=== PATIENT | female | born 1960 | race Caucasian/White ===

== ENCOUNTER 2024-11-27 20:56 | Inpatient (IN) | payer OTHER, MEDICAID, MEDICARE, SELFPAY ==
[2024-11-27 20:57] VITALS: BMI 48.6
[2024-11-27 21:15] VITALS: BP 148/78; PULSE 85; RESP 21; TEMP 37.1; O2SAT 96
--- NOTE | 2024-11-27 22:02 | XR_ITS ---
Examination: Ultrasound soft tissue subacute area pelvis Exam date and time: 2024 1010 hrs. Indications: Suprapubic redness swelling and pain beginning 2 weeks ago Findings: Soft tissue hernia of edema and low echogenicity 9.8 x 1.7 x 7.4 cm with vascularity consistent with abscess Impression: Findings most consistent with soft tissue abscess at the area concern, 9.8 x 1.7 x 1.4 cm
--- NOTE | 2024-11-27 22:05 | PD.EDRME ---
Rapid Medical Screening Exam RME Arrival date/time: 11/27/24 20:56 64-year-old female past medical history of ESRD presents emergency department complaining of abscess to vaginal area for 1 week. Patient reports was sent by Dr. Jurado for evaluation. Chief Complaint: Skin/Abscess/Foreign Body Time Seen by Provider: 11/27/24 20:57 Vital signs: Vital Signs Temperature 98.8 F 11/27/24 21:15 Pulse Rate 85 11/27/24 21:15 Respiratory Rate 21 H 11/27/24 21:15 Blood Pressure 148/78 H 11/27/24 21:15 Pulse Oximetry (%) 96 11/27/24 21:15 Oxygen Delivery Method Room Air 11/27/24 21:15 Vital signs reviewed by provider: Yes
[2024-11-27] MEDS: HYDROcodone/APAP 5/325 TABLET 1 TAB PO (22:44)
[2024-11-27 22:59] LABS: Basophils % (Auto) 0 % (0-2.5); Eosinophils # (Auto) 0.2 Thou/mm3 (0.0-0.5); Eosinophils % (Auto) 2 % (0-10); Hematocrit 36.6 % (36.0-46.0); Hemoglobin 11.4 g/dL (12.0-16.0); Immature Granulocytes % (Auto) 0 % (0-0); Immature Granulocytes Auto 0.04 Thou/mm3 (0.00-0.00); Lymphocytes # (Auto) 1.6 Thou/mm3 (1.0-4.8); Lymphocytes % (Auto) 18 % (10-50); Mean Corpuscular HGB Conc 31.1 g/dl (31.0-37.0); Mean Corpuscular Hemoglobin 30.6 pg (25.0-35.0); Mean Corpuscular Volume 98 fL (80-100); Monocytes # (Auto) 0.7 Thou/mm3 (0.0-0.8); Monocytes % (Auto) 7 % (0-12); Neutrophils # (Auto) 6.4 Thou/mm3 (1.8-7.7); Neutrophils % (Auto) 72 % (37-80); Nucleated Red Blood Cell % 0 /100 WBC (0); Platelet Count 235 Thou/mm3 (140-440); RDW Standard Deviation 50.8 fL (36.4-46.3); Red Blood Count 3.73 Miln/mm3 (4.00-5.20); White Blood Count 8.9 Thou/mm3 (3.6-11.0)
[2024-11-27 23:21] LABS: INR 1.1 (0.9-1.3); Partial Thromboplastin Time 26.5 Seconds (22.0-36.0); Prothrombin Time 11.7 Seconds (9.0-12.2)
[2024-11-27 23:28] LABS: Alanine Aminotransferase 19 U/L (10-49); Albumin, Serum 3.9 gm/dL (3.4-4.8); Albumin/Globulin Ratio 1.4 (1.2-2.2); Alkaline Phosphatase 133 U/L (46-116); Anion Gap 8 (7-16); Aspartate Amino Transferase 16 U/L (0-34); BUN/Creatinine Ratio 9 Ratio (12-20); Bilirubin,Total < 0.2 mg/dL (0.3-1.2); Blood Urea Nitrogen 48 mg/dL (9-23); Calcium 8.8 mg/dL (8.3-10.6); Calcium (Corrected) 8.9 mg/dL (8.5-10.1); Carbon Dioxide 25.6 mMol/L (20.0-31.0); Chloride 103 mMol/L (98-107); Creatinine (Component) 5.4 mg/dL (0.6-1.3); Estimated Creatinine Clearance 13.7 mL/min (>60); Globulin 2.8 gm/dL (2.3-3.5); Glucose 133 mg/dL (74-106); Osmolality,Calculated 288 (275-295); Potassium 5.7 mMol/L (3.4-5.1); Procalcitonin 0.38 ng/ml (0.0-0.49); Sodium 137 mMol/L (136-145); Total Protein 6.7 gm/dL (5.7-8.2); Troponin I < 0.020 ng/mL (0.0-0.045); eGFR 8 See Note
[2024-11-27 23:30] LABS: B-Type Natriuretic Peptide 182 pg/mL (0-100)
[2024-11-28] VITALS (11 sets, daily range): BP systolic 118–150; BP diastolic 56–106; PULSE 72–92; RESP 16–19; TEMP 36.2–36.8; O2SAT 93–100; BMI 48.6
--- NOTE | 2024-11-28 02:43 | PD.EDSKIN ---
ED Skin Abcess FB-RME/HPI General Chief complaint: Skin/Abscess/Foreign Body Stated complaint: POSS ABSCESS ON VAGINAL AREA Time Seen by Provider: 11/27/24 20:57 Arrival date/time: 11/27/24 20:56 RME / HPI RME / HPI narrative: 11/27/24 20:56 64-year-old female past medical history of ESRD presents emergency department complaining of abscess to vaginal area for 1 week. Patient reports was sent by Dr. Jurado for evaluation. Dr. Caruso?s Main ED Evaluation: 64yo female presents to the ED for a wound to her vaginal area x 1 week. Patient states she initially thought she had an ingrown hair to her vaginal area 1 week ago, reporting she started developing redness, pain, and swelling to the area over the last week. She states she started having bloody drainage 2 days ago. She was seen by her PCP, Dr. Jurado, today and was sent over for evaluation. Patient denies any fever, chills, cough, runny nose or any other associated symptoms. 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%), rheumatoid arthritis on methotrexate and Raynaud's Related Data Home Medications ?Medication ?Instructions ?Recorded ?Confirmed aspirin 81 mg tablet,delayed 81 mg PO QDAY ##0 10/22/14 07/25/24 release albuterol sulfate 90 mcg/actuation 2 inh inhalation TID PRN Shortness 09/02/22 07/25/24 aerosol inhaler Of Breath Or Wheezing atorvastatin 20 mg tablet 20 mg PO QDAY 09/02/22 07/25/24 carvedilol 12.5 mg tablet 12.5 mg PO BID 09/02/22 07/25/24 clopidogrel 75 mg tablet (Plavix) 75 mg PO QDAY 09/02/22 07/25/24 hydrocodone 5 mg-acetaminophen 325 1 tab PO DAILY 09/02/22 07/25/24 mg tablet insulin aspart U-100 100 unit/mL 5 unit subcut TIDWM 09/02/22 07/25/24 (3 mL) subcutaneous pen (Novolog FlexPen U-100 Insulin aspart) loratadine 10 mg tablet 10 mg PO QDAY 09/02/22 07/25/24 midodrine 5 mg tablet 5 mg PO BID 09/02/22 07/25/24 pregabalin 100 mg capsule 100 mg PO BID 09/02/22 07/25/24 sacubitril 97 mg-valsartan 103 mg 1 tab PO BID 09/02/22 07/25/24 tablet (Entresto) blood sugar diagnostic (Accu-Chek 03/30/23 07/28/24 Guide test strips) duloxetine 20 mg capsule,delayed 20 mg PO QDAY 03/30/23 07/25/24 release pen needle, diabetic 32 gauge x 03/30/23 07/28/2409/30 (BD Ultra-Fine Micro Pen Needle) sevelamer carbonate 800 mg tablet 2,400 mg PO TID 03/30/23 07/25/24 tirzepatide 5 mg/0.5 mL 5 mg subcut QWEEK 03/30/23 07/25/24 subcutaneous pen injector (Nicki) vitamin B complex-vitamin C-folic 1 tab PO QDAY 03/30/23 07/25/24 acid 0.8 mg tablet (Lori-Stephanie) Previous Rx's ?Medication ?Instructions ?Recorded nitroglycerin 0.4 mg sublingual 0.4 mg buccal PRN PRN Chest Pain 03/10/22 tablet (Nitrostat) #60 tabs cephalexin 500 mg capsule 500 mg PO BID #10 caps 08/01/24 lidocaine HCl 2 % mucosal solution 15 ml PO Q6H PRN Local Anesthesia 08/01/24 #150 mL Allergies Allergy/AdvReac Type Severity Reaction Status Date / Time clarithromycin Allergy Severe RASH Verified 07/25/24 13:19 Review of Systems Review of Systems Systems Reviewed: All systems reviewed, normal except as documented Past Medical History Past Medical History NEUROLOGIC: Positive Neurological Disorders, Perez's Palsy and Head Trauma; Negative Seizures CARDIAC: Positive Cardiac Disorders, Myocardial Infarction, Coronary Artery Disease, Hypercholesterolemia, Congestive Heart Failure and Hypertension; Negative Edema or Cellulitis RESPIRATORY: Positive Chronic Obstructive Pulmonary Disease (COPD), Asthma and Pneumonia; Negative Tuberculosis, Pulmonary Embolism or Sleep Apnea GASTROINTESTINAL: Positive Gastrointestinal Disorders, Gall Bladder Disease, Hiatal Hernia, Gastroesophageal Reflux Disease and Obesity; Negative Hepatitis or Ulcer GENITOURINARY: Positive Genitourinary Disorders, Renal Disease and Dialysis REPRODUCTIVE: Positive Previous Pregnancies MUSCULOSKELETAL: Positive Musculoskeletal Disorders, Rheumatoid Arthritis, Degenerative Disk Disease, Carpal Tunnel Syndrome, Fibromyalgia and Fractures ENT: Positive Cataracts and Head Trauma ENDOCRINE: Positive Endocrine Disorders and Diabetes Mellitus Type 2; Negative Diabetes Mellitus Type 1 HEMATOLOGIC: Positive Anemia; Negative Blood Disorders or Sickle Cell Disease PSYCHO/SOCIAL: Positive Anxiety; Negative Depression OTHER HISTORY: Positive Hospitalization, Shingles, Falls, MRSA, Chicken Pox and Measles; Negative Autoimmune Disease, Blood Transfusions, Blood Transfusion Reaction, Anesthesia Reactions, Chemotherapy, Radiation Therapy, Mumps or Cancer Family History FAMILY HISTORY: Positive Family Psychiatric Problems, Family Respiratory Disorders, Family Cardiac Disorders and Family Surgery; Negative Family Gastrointestinal Problems, Family Cancer or Family Anesthesia Reaction Surgical History SURGICAL: Positive Coronary Stent, Cardiac Catheterization, Angiogram, Eye Surgery, Nose Surgery, Tonsillectomy, Abdominal Surgery, Joint Replacement, Arthroscopy, Tubal Ligation and Section; Negative Pacemaker Social History SMOKING STATUS: Former smoker SECOND HAND EXPOSURE: Yes SUBSTANCE USE: does not use ED Exam Narrative Physical exam: GENERAL APPEARANCE: alert and oriented x 4, well-developed, well-nourished, morbidly obese, no acute distress VITALS: All vitals were reviewed and the pulse ox is 97% on room air, which is normal according to my interpretation. 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 There's extensive swelling and erythema with tenderness to palpation over the entire mons venous. There is an anterior 6 cm open wound with perulent and bloody drainage with some erythema to the left inguinal crease, but not the right. There's no obvious perineal involvement or discharge, nor is there any vaginal discharge. NEUROLOGIC: awake; alert and oriented x4; cranial nerves II-XII grossly intact; no focal sensory or motor deficits PSYCHIATRIC: appropriate mood and affect SKIN: warm, dry; no rashes Course Quality Measures none Orders Category Date Time Status CT Screening NOW Care 11/28/24 03:04 Active Executive Administrative Asst STAT Care 11/28/24 02:59 Active Continuous Pulse Oximetry STAT Care 11/28/24 02:59 Completed EKG (ED ONLY) *Do not use* NOW Care 11/28/24 02:59 Completed In and Out Catheter X1PRN Care 11/28/24 02:59 Active Insert IV NOW Care 11/28/24 02:59 Active NPO STAT Care 11/28/24 02:59 Active Strict Intake and Output Routine Care 11/28/24 02:[address] pelvis w con Stat Exams 11/28/24 03:04 Taken EKG (ED Only) Stat Exams 11/28/24 02:59 Draft US extremity nonvascular LMTD Stat Exams 11/27/24 22:02 Completed BNP [B-Type Natriuretic Peptide] Stat Lab 11/27/24 22:46 Completed Blood Culture (Lab) Stat Lab 11/27/24 22:46 Received CBC Stat Lab 11/27/24 22:46 Completed CMP [Comprehensive Metabolic Panel] Stat Lab 11/27/24 22:46 Completed LDH (Lactate Dehydrogenase) Stat Lab 11/28/24 03:36 Completed Lactic Acid [Lactate (Lactic Acid)] Stat Lab 11/27/24 22:46 Completed Lipase Stat Lab 11/28/24 03:36 Completed Magnesium Stat Lab 11/28/24 03:36 Completed PT [Prothrombin Time with INR] Stat Lab 11/27/24 22:46 Completed PTT [Partial Thromboplastin Time] Stat Lab 11/27/24 22:46 Completed Phosphorous Stat Lab 11/28/24 03:36 Completed Procalcitonin Stat Lab 11/27/24 22:46 Completed Troponin I Stat Lab 11/27/24 22:46 Completed Urinalysis Stat Lab 11/28/24 02:59 Ordered Urine Culture Stat Lab 11/28/24 02:59 Ordered Wound Culture and Gram Stain Stat Lab 11/28/24 03:08 Received Acetaminophen Ivpb [Ofirmev Inj] Med 11/28/24 03:07 Discontinued 1,000 mg in 100 ml IV X1 Doxycycline Inj [Vibramycin Inj] 100 mg Med 11/28/24 03:04 Discontinued Sodium Chloride 0.9% (Pop) [NS 0.9% mini bag] 100 ml IV X1 Doxycycline Inj [Vibramycin Inj] 100 mg Med 11/28/24 03:40 Discontinued Sodium Chloride 0.9% (Pop) [NS 0.9% mini bag] 100 ml IV X1 HYDROcodone*/APAP 5/325 [Epps 5/325] Med 11/27/24 22:06 Discontinued 1 tab PO X1 ONE Morphine Inj Med 11/28/24 03:10 Discontinued 2 mg IVP X1 ONE Ondansetron Inj [Zofran Inj] Med 11/28/24 03:10 Discontinued 4 mg IV X1 ONE Piper/Tazo Inj [Zosyn Inj] 4.5 gm Med 11/28/24 03:05 Discontinued Sodium Chloride 0.9% (Pop) [NS 0.9% mini bag] 100 ml IV X1 Piper/Tazo Inj [Zosyn Inj] 4.5 gm Med 11/28/24 03:39 Discontinued Sodium Chloride 0.9% (Pop) [NS 0.9% mini bag] 100 ml IV X1 Vital Signs Vital signs: Vital Signs Temperature 98.8 F 11/27/24 21:15 Pulse Rate 85 11/27/24 21:15 Respiratory Rate 21 H 11/27/24 21:15 Blood Pressure 148/78 H 11/27/24 21:15 Pulse Oximetry (%) 96 11/27/24 21:15 Oxygen Delivery Method Room Air 11/27/24 21:15 Skin / Abscess / Foreign Body MDM Narrative MDM Narrative:: Scribe Attestation: 11/28/24 Heydi Collado am scribing for and in the presence of Dr. Caruso. Patient data External records reviewed:: [facility] previous records (Per chart review, patient was admitted here on 07/25/24 for anemia.) Clinical information provided by:: patient Social determinants that could affect healthcare access:: none Patient has the following chronic illnesses:: ESRD on HD (MWF), T2DM, COPD, CAD s/p PCI, HFmrEF (last EF March 2023 45-50%), rheumatoid arthritis on methotrexate and Raynaud's How is presenting disease/condition affected by chronic disease/condition?: exacerbated by Evaluation data The following diagnostics were reviewed and interpreted by me:: lab results, radiology exam(s) and EKG tracing(s) Lab and/or radiology exams considered but not ordered:: none Interpretation Summary: CBC is normal, Potassium is elevated at 5.7, Creatinine is elevated at 5.4, BUN is 48, Glucose is 133, Lactic Acid is normal, BNP is 182, Procalcitonin is normal, according to my interpretation. EKG done at 0436, NSR, rate of 84, left axis deviation, left ventricular hypertrophy, Q waves in V1-V3, no acute ischemia, according to my interpretation. -------- [facility] Report Signed Patient: ALICIA DE GUZMAN. Record#: [id number] Birthdate: 1960 Age/Sex: 64 / F Location: [facility] Attending Dr: Ordering Physician: Neeta Kelsey ([facility]),Richard MEDLEY Date of Service: 11/27/24 Procedure(s): US extremity nonvascular LMTD Accession Number(s): [id number] cc: Gilbert Falcon MD; NO PRIMARY/FAMILY,PHYSICIAN; Neeta Kelsey ([employer]),Richard MEDLEY~ Examination: Ultrasound soft tissue subacute area pelvis Exam date and time: 2024 1010 hrs. Indications: Suprapubic redness swelling and pain beginning 2 weeks ago Findings: Soft tissue hernia of edema and low echogenicity 9.8 x 1.7 x 7.4 cm with vascularity consistent with abscess Impression: Findings most consistent with soft tissue abscess at the area concern, 9.8 x 1.7 x 1.4 cm Dictated By: Gilbert Falcon MD Signed By: <Electronically signed by Gilbert Falcon MD in OV> 11/27/24 1571 Medications / Prescriptions Medications or Prescriptions considered but not ordered:: none Medication administrations:: Medication Administration History Discontinued Medications Hydrocodone Bitart/Acetaminophen (Hydrocodone/Apap 5/325 Tablet) 1 tab PO X1 ONE Stop: 11/27/24 22:07 Last Admin: 11/27/24 22:44 Dose: 1 tab Documented By: KG Piperacillin Sod/Tazobactam (Sod 4.5 gm/ Sodium Chloride) 100 mls @ 200 mls/hr IV X1 ONE Stop: 11/28/24 03:34 Last Admin: 11/28/24 04:40 Dose: 200 mls/hr Documented By: KD Doxycycline Hyclate 100 mg/ (Sodium Chloride) 100 mls @ 100 mls/hr IV X1 ONE Stop: 11/28/24 04:03 Acetaminophen (Ofirmev Inj) 1,000 mg in 100 mls @ 250 mls/hr IV X1 ONE Stop: 11/28/24 03:30 Last Infusion: 11/28/24 04:13 Dose: Infused Documented By: Admin: 11/28/24 03:30 Dose: 250 mls/hr Documented By: KG Piperacillin Sod/Tazobactam (Sod 4.5 gm/ Sodium Chloride) 100 mls @ 200 mls/hr IV X1 ONE Stop: 11/28/24 04:08 Last Admin: 11/28/24 04:14 Dose: Not Given Documented By: KD Non-Admin Reason: Duplicate Medication on eMAR Doxycycline Hyclate 100 mg/ (Sodium Chloride) 100 mls @ 100 mls/hr IV X1 ONE Stop: 11/28/24 04:39 Last Admin: 11/28/24 04:14 Dose: Not Given Documented By: KD Non-Admin Reason: Duplicate Medication on eMAR Morphine Sulfate (Morphine Sulf Inj 10 Mg/Ml Vial) 2 mg IVP X1 ONE Stop: 11/28/24 03:11 Last Admin: 11/28/24 03:29 Dose: 2 mg Documented By: KG Ondansetron HCl (Ondansetron Inj 2 Mg/Ml Inj 2 Ml) 4 mg IV X1 ONE; Protocol Stop: 11/28/24 03:11 Last Admin: 11/28/24 03:28 Dose: 4 mg Documented By: KG see above Consultations Consultation(s) initiated? (list below): No Diagnosis Skin/Abscess Differential Diagnosis: other (cellulitis, abscess, necrotizing fasciitis) Most likely diagnosis given after review of the tests above:: final dx pending at signout Admission Indicated Admission indicated?: not indicated Explain why admission is indicated or not indicated:: CT pelvis pending at signout. Admission Request Was there a request for admission?: No Disposition Plan Disposition Plan: other (specify) (Signed out to Dr. Hauser at [address] pelvis.) Discharge Plan Plan Disposition Comment: Stable at signout. Prescriptions/Referrals Prescriptions/Med Rec: No Action aspirin 81 mg Tablet,Delayed Release (Dr/Ec) 81 mg PO QDAY Qty: 0 nitroglycerin [Nitrostat] 0.4 mg Tablet, Sublingual 0.4 mg buccal PRN PRN (Reason: Chest Pain) Qty: 60 0RF (DME) Accu-Chek Guide test strips Strip Patient Comments: APPLY TO AFFECTED AREA TWICE A DAY DIRECTED Lori-Stephanie 0.8 mg tablet 1 tab PO QDAY Patient Comments: TAKE 1 TABLET BY MOUTH ONCE A DAY duloxetine 20 mg capsule,delayed release(DR/EC) 20 mg PO QDAY Patient Comments: TAKE 1 CAPSULE BY MOUTH EVERY DAY (DME) pen needle, diabetic [BD Ultra-Fine Micro Pen Needle] 32 gauge x 1/4 needle Patient Comments: INJECT SUBCUTANEOUSLY 3 TIMES A DAY sevelamer carbonate 800 mg tablet 2,400 mg PO TID Patient Comments: TAKE 3 TABLETS BY MOUTH 3 TIMES A DAY Mounjaro 5 mg/0.5 mL pen injector 5 mg SUBCUT QWEEK Patient Comments: INJECT 5MG SUBCUTANEOUSLY WEEKLY atorvastatin 20 mg tablet 20 mg PO QDAY Patient Comments: TAKE 1 TABLET BY MOUTH EVERY DAY carvedilol 12.5 mg tablet 12.5 mg PO BID Patient Comments: TAKE 1 TABLET BY MOUTH TWICE A DAY WITH FOOD FOR 30 DAYS hydrocodone-acetaminophen 5-325 mg tablet 1 tab PO DAILY Patient Comments: TAKE 1 TABLET BY MOUTH TWICE A DAY NEEDED midodrine 5 mg tablet 5 mg PO BID Patient Comments: TAKE 1 TABLET BY MOUTH TWICE A DAY ON DIALYSIS DAYS Rx Instructions: TAKE 1 TABLET BY MOUTH TWICE A DAY ON DIALYSIS DAYS clopidogrel [Plavix] 75 mg Tablet 75 mg PO QDAY loratadine 10 mg tablet 10 mg PO QDAY Patient Comments: TAKE 1 TABLET BY MOUTH EVERY DAY insulin aspart U-100 [Novolog FlexPen U-100 Insulin] 100 unit/mL (3 mL) insulin pen 5 unit SUBCUT TIDWM Patient Comments: INJECT 5 UNITS SUBCUTANEOUSLY 3 TIMES A DAY WITH EACH MEAL PER SLIDING SCALE pregabalin 100 mg capsule 100 mg PO BID Patient Comments: TAKE 1 CAPSULE BY MOUTH TWICE A DAY Entresto 97-103 mg tablet 1 tab PO BID Patient Comments: TAKE 1 TABLET BY MOUTH TWICE A DAY albuterol sulfate 90 mcg/actuation HFA aerosol inhaler 2 inh INH TID PRN (Reason: Shortness Of Breath Or Wheezing) Rx Instructions: Please provide a chamber cephalexin 500 mg capsule 500 mg PO BID Qty: 10 0RF lidocaine HCl 2 % Solution 15 ml PO Q6H PRN (Reason: Local Anesthesia) Qty: 150 0RF Referrals: No Primary/Family,Physician [Primary Care Provider] - In 1 week Problem List Clinical Impression: Sepsis, Cellulitis Patient/Caregiver Discharge Instructions Print Language: Zambian
--- NOTE | 2024-11-28 02:59 | EKG_ITS ---
[facility] Test Date: 2024-11-28 Pat Name: ALICIA DE GUZMAN Department: Room: - Gender: Female Lean Engineer: : 1960 Requested By: Jean Navarro Order Number: [id number] Reading MD: Jean Navarro Measurements Intervals [place] Rate: 84 P: 48 MO: 210 QRS: -22 QRSD: 114 T: 112 QT: 394 QTc: 466 Interpretive Statements SINUS RHYTHM WITH FIRST DEGREE AV BLOCK POSSIBLE LEFT VENTRICULAR HYPERTROPHY [VOLTAGE CRITERIA PLUS LAE OR QRS WIDENING] POSSIBLE ANTEROSEPTAL MYOCARDIAL INFARCTION , OF INDETERMINATE AGE [30 ms Q WAVE IN V1-V4] Compared to ECG 03/28/2023 11:09:07 First degree AV block now present Left-axis deviation no longer present Myocardial infarct finding still present /store/S0/[id number]/ecg/[id number].pdf
--- NOTE | 2024-11-28 03:04 | XR_ITS ---
Examination: CT pelvis with intravenous contrast, 2-D sagittal reconstructions. 2-D coronal reconstructions. 3-D reconstructions. Date and time of exam:November 28, 2024 at 0443 hrs. Indications: Cellulitis abscess redness swelling and pain involving the peroneal vaginal area today CTDI: vol (mGy):41.8 DLP: (mGycm):874 Technique: Multiple 1.25 mm axial sections of the pelvis with intravenous contrast, 30 cc Isovue-300 have been obtained. 2-D sagittal and coronal reconstructions have been obtained. 3-D reconstructions have been obtained. Low dose protocols were performed. One or more of the following dose reduction techniques were used; automated exposure control, adjustment of the mA and/or KV according to patient size, use of iterative reconstruction technique. Findings: Negative for bowel obstruction Umbilical hernia, 4 cm, containing bowel but no incarcerated bowel Atrophic uterus Significant cellulitis pattern below the symphysis with skin thickening Early soft tissue abscess axial image 166 measuring 42 x 17 mm No cortical bone destruction Impression: Soft tissue cellulitis pattern below the symphysis with early soft tissue abscess 4.2 x 1.7 cm
[2024-11-28] MEDS: ONDANSETRON INJ 2 MG/ML INJ 2 ML 4 MG IV (03:28)
[2024-11-28] MEDS: MORPHINE SULF INJ 10 MG/ML VIAL 2 MG IVP (03:29)
[2024-11-28] MEDS: ACETAMINOPHEN IVPB 1,000 MG/100 ML VIAL 250 MG IV (03:30)
[2024-11-28 04:16] LABS: LDH (Lactate Dehydrogenase) 203 U/L (120-246); Lipase 41 U/L (12-53); Magnesium 3.2 mg/dL (1.6-2.6); Phosphorous 5.5 mg/dL (2.4-5.1)
[2024-11-28] MEDS: PIPER/TAZO INJ 4.5 GM in SODIUM CHLORIDE 0.9% (POP) 100 ML IV (04:40)
[2024-11-28] MEDS: DOXYCYCLINE INJ 100 MG in SODIUM CHLORIDE 0.9% (POP) 100 ML IV (06:03)
--- NOTE | 2024-11-28 06:49 | PRELIM_ITS ---
CT scan of the pelvis with intravenous contrast (axial sections with sagittal and coronal reformats). November 28, 2024 0443 hours Clinical History: Cellulitis and abscess of the mons venous. Comparison: No prior study is available for comparison. Findings: There is cutaneous thickening and subcutaneous soft tissue stranding along the mons pubis region bilaterally without soft tissue emphysema or soft tissue abscess. There are colonic diverticula without evidence of diverticulits on this study. Reproductive organs are unremarkable for the patient's age. Urinary bladder is decompressed and not adequately evaluated on this study. There are vascular calcifications along the abdominal aorta and iliac arteries. There is degenerative change in the lumbar spine and at the SI joints. There is subchondral sclerosis at the SI joints which may indicate sacroiliitis. Impression: Cellulitis of the mons pubis region without soft tissue emphysema or soft tissue abscess. Report Electronically Signed By: Pepe Mullins 11/28/2024 6:49:28 AM [EST]
--- NOTE | 2024-11-28 07:00 | PD.EDADDENDU ---
Emergency Room Addendum Addendum Narrative: I took over the care from Dr. Caruso at 6 AM on 12/19, see his notes for complete H&P and ED course. I reviewed all diagnostic test results. At this point, diagnoses include mons pubis cellulitis/abscess and ESRD and possible sepsis. I discussed the case with Dr. Jurado. About the presentation and exam and diagnostics and treatments here. And need of further care in the hospital. Will accept the patient. Rohit Hauser MD
--- NOTE | 2024-11-28 09:09 | PC.NURSE ---
Report given to Marcia TANG
--- NOTE | 2024-11-28 09:10 | PC.SS ---
Initial assessment: this is 64 year old female comes from home. Patient confirmed demographic information. The patient reports living at home with daughter and grandchildren. Patient assigned her daughter Leticia as her emergency contact. The patient informs she requires some assistance with ADL's. The patient reports having a wheelchair, walker and home oxygen. Patient baseline is 2L for oxygen. Patient is followed by Dr. Jurado for primary care. Patient also followed by Dr. Lepe. The patient's preferred pharmacy is [facility] in [place]. The patient plans to return home upon discharge, family is able to transport home. No needs identified at this time. Patient currently pending being admitted. D/c plan: Home Next of kin: daughterLeticia
--- NOTE | 2024-11-28 09:15 | PD.RESHP ---
Documentation for date of: 11/28/24 [facility] History of Present Illness Chief complaint: Vulvar abscess History of present illness: Ms. Kirkland is a 64-year-old wheelchair-bound female with past medical history of diabetes mellitus, hypertension, morbid obesity, diabetic neuropathy, CAD s/p PCI, CHF, rheumatoid arthritis, COPD on 2 L oxygen at home ESRD on HD (M/W/F) presented to the hospital with chief complaints of pain and swelling in her vulvar area since 1week. Patient was apparently normal 2weeks ago, during which she developed neftali infection under her breast and axillary folds for which she is treated with topical antifungals. 1week ago, patient initially developed a small swelling in the vulvar area which she thought to be a ingrown hair and later got antibiotics from Dr. Jurado but despite that the swelling seems to be progressively worsening since then. Denies fever, trauma. Endorses compliance with her medications. Denies any trauma to the area, denies itching, vaginal discharge. Endorses that her last dialysis session was done on the day before admission. ED Course: -Initial vitals were blood pressure 148/78 mmHg, pulse rate 85 bpm, respiratory rate 21/min, temperature 98.8 ?F, SpO2 96% with room air -Labs significant for Hb 11.4, WBC 8.9, platelets 235, sodium 137, potassium 5.7, chloride 103, bicarb 25.6, BUN 48, creatinine 5.4, phosphorus 5.5, magnesium 3.2, BNP 182, procalcitonin 0.38 -Ultrasound in the vulvar area showed soft tissue abscess of 9.8 x 1.[address] showed soft tissue abscess of 4.2 x 1.7 cm. EKG showed normal sinus rhythm. -In the ED, patient was given Zosyn and doxycycline. -Patient was admitted for vulvar abscess Past medical history: Diabetes mellitus, hypertension, CAD s/p PCI, CHF, rheumatoid arthritis, COPD, ESRD Past surgical history: 3 C-sections, tubal ligation, hernia repair, arthroscopic right knee repair, left total knee replacement, tonsillectomy, cholecystectomy Social history: , lives with her daughter and grandkids, mostly bedbound, smokes 1 to 2 cigarettes/day, denies alcohol, other illicit drug abuse. Allergies: Piaxin Family history: Hypertension, diabetes mellitus and CHF in mother and father Review of Systems Review of Systems Narrative Review of Systems: Constitutional: No Weight Change, No Fever, No Chills, No Night Sweats, No Fatigue, No Malaise ENT/Mouth: No Hearing Changes, No Ear Pain, No Nasal Congestion, No Sinus Pain, No Hoarseness, No sore throat, No Rhinorrhea, No Swallowing Difficulty Eyes: No Eye Pain, No Swelling, No Redness, No Foreign Body, No Discharge, No Vision Changes Cardiovascular: No Chest Pain, No SOB, No PND, No Dyspnea on Exertion, No Orthopnea, No Edema, No Palpitations Respiratory: No Cough, No Sputum, No Wheezing, No Dyspnea Gastrointestinal: No Nausea, No Vomiting, No Diarrhea, No Constipation, No Pain, No Heartburn, No Anorexia, No Dysphagia, No Hematochezia, No Melena, No Flatulence, No Jaundice Genitourinary: No Dysuria, No Urinary Frequency, No Hematuria, No Urinary Incontinence, No Urgency, No Flank Pain, No Urinary Flow Changes, No Hesitancy Musculoskeletal: No Arthralgias, No Myalgias, No Joint Swelling, No Joint Stiffness, No Back Pain, No Neck Pain, No Injury History Skin: neftali intertrigo, Pruritis in the breast and axillary folds. Huge abscess in the vulvar area Neuro: No Weakness, No Numbness, No Paresthesias, No Loss of Consciousness, No Syncope, No Dizziness, No Headache, No Coordination Changes, No Recent Falls Past Medical History Past Medical History CARDIAC: Positive Myocardial Infarction, Coronary Artery Disease, Congestive Heart Failure and Hypertension RESPIRATORY: Positive Chronic Obstructive Pulmonary Disease (COPD), Asthma, Smoking and Tobacco Use GASTROINTESTINAL: Positive Gall Bladder Disease and Obesity GENITOURINARY: Positive Dialysis HEMATOLOGIC: Positive Anemia Social History SMOKING STATUS: Light (< 1 pack/day) LIVES WITH: Children Exam Vital Signs Temp Pulse Resp BP Pulse Ox O2 Del Method 98.3 F 81 16 121/88 H 99 Room Air 11/28/24 08:00 11/28/24 08:00 11/28/24 08:00 11/28/24 08:00 11/28/24 08:00 11/28/24 08:00 Narrative Exam General: Awake. Morbidly obese HEENT: Normocephalic, atraumatic, mucous membranes moist. Heart: Regular rate and rhythm, no murmurs. Left-sided tunneled dialysis catheter noted Lungs: Clear to auscultation with no wheezing or crackles. Abdomen: Soft, nondistended, nontender, positive bowel sounds. ?No guarding or rebound tenderness. A 4 x 3 cm abscess with bloody drainage is noted in the vulvar area extending into the upper end of labia majora Neurologic: Alert and oriented x3, no gross neurological deficit, and patient able to move all 4 extremities. Extremities: No edema. Skin: Huge abscess and erythema in the vulvar area. Patient has fungal rash under the skin folds. Results: Labs 11/27/24 22:46 11/27/24 22:46 Labs: Short CBC 11/27/24 Range/Units 22:46 WBC 8.9 (3.6-11.0) Thou/mm3 Hgb 11.4 L (12.0-16.0) g/dL Hct 36.6 (36.0-46.0) % Plt Count 235 (140-440) Thou/mm3 BMP 11/27/24 22:46 Sodium 137 Potassium 5.7 H Chloride 103 Carbon Dioxide 25.6 BUN 48 H Creatinine 5.4 H* Glucose 133 H Calcium 8.8 Cardiac Enzymes 11/27/24 Range/Units 22:46 Troponin I < 0.020 (0.0-0.045) ng/mL Liver Function 11/27/24 Range/Units 22:46 Total Bilirubin < 0.2 L (0.3-1.2) mg/dL AST 16 (0-34) U/L ALT 19 (10-49) U/L Alkaline Phosphatase 133 H (46-116) U/L Albumin 3.9 (3.4-4.8) gm/dL Quality Measures Quality Measures none Medications Home Medications and Allergies Home Medications ?Medication ?Instructions ?Recorded ?Confirmed ?Type aspirin 81 mg tablet,delayed 81 mg PO QDAY ##0 10/22/14 11/28/24 History release albuterol sulfate 90 mcg/actuation 2 inh inhalation TID PRN Shortness 09/02/22 11/28/24 History aerosol inhaler Of Breath Or Wheezing atorvastatin 20 mg tablet 20 mg PO QDAY 09/02/22 11/28/24 History carvedilol 12.5 mg tablet 12.5 mg PO BID 09/02/22 11/28/24 History clopidogrel 75 mg tablet (Plavix) 75 mg PO QDAY 09/02/22 11/28/24 History hydrocodone 5 mg-acetaminophen 325 1 tab PO DAILY 09/02/22 11/28/24 History mg tablet insulin aspart U-100 100 unit/mL 5 unit subcut TIDWM 09/02/22 11/28/24 History (3 mL) subcutaneous pen (Novolog FlexPen U-100 Insulin aspart) loratadine 10 mg tablet 10 mg PO QDAY 09/02/22 11/28/24 History midodrine 5 mg tablet 5 mg PO BID 09/02/22 11/28/24 History pregabalin 100 mg capsule 100 mg PO BID 09/02/22 11/28/24 History sacubitril 97 mg-valsartan 103 mg 1 tab PO BID 09/02/22 11/28/24 History tablet (Entresto) blood sugar diagnostic (Accu-Chek 03/30/23 11/28/24 History Guide test strips) duloxetine 20 mg capsule,delayed 20 mg PO QDAY 03/30/23 11/28/24 History release pen needle, diabetic 32 gauge x 03/30/23 11/28/24 History 1/4 (BD Ultra-Fine Micro Pen Needle) sevelamer carbonate 800 mg tablet 2,400 mg PO TID 03/30/23 11/28/24 History tirzepatide 5 mg/0.5 mL 5 mg subcut QWEEK 03/30/23 11/28/24 History subcutaneous pen injector (Nicki) vitamin B complex-vitamin C-folic 1 tab PO QDAY 03/30/23 11/28/24 History acid 0.8 mg tablet (Lori-Stephanie) Allergies Allergy/AdvReac Type Severity Reaction Status Date / Time clarithromycin Allergy Severe RASH Verified 07/25/24 13:19 Visit Medications Dextrose (Dextrose 50%-Water Inj 50 Ml Syringe) 25 ml IV Q15MIN PRN PRN Reason: BG 50-70 responsive npo pt Stop: 12/28/24 09:01 Dextrose (Dextrose 50%-Water Inj 50 Ml Syringe) 50 ml IV Q15MIN PRN PRN Reason: BG <50 OR BG <70 & pt unresponsive Stop: 12/28/24 09:01 Glucagon (Glucagon Inj 1 Mg Vial) 1 mg IM Q15MIN PRN PRN Reason: BG <70, and no IV access Heparin Sodium (Porcine) (Heparin Sod Inj 5000 Unit/Ml Vial) 5,000 unit SC Q8HR [facility] Stop: 12/12/24 13:59 Piperacillin Sod/Tazobactam (Sod 3.375 gm/ Sodium Chloride) 50 mls @ 12.5 mls/hr IV BID [facility]; Protocol Stop: 12/05/24 20:59 Insulin Human Lispro (Insulin Lispro (Admelog) 1 Unit/0.01 Ml Unit) 0 unit SC ACHS [facility]; Protocol Stop: 12/28/24 11:29 Pharmacy Consult (Vancomycin Pharmacy To Dose 1 Each Each) 1 each IV QDAY PRN PRN Reason: PROTOCOL Stop: 12/28/24 09:14 Discontinued Medications Hydrocodone Bitart/Acetaminophen (Hydrocodone/Apap 5/325 Tablet) 1 tab PO X1 ONE Stop: 11/27/24 22:07 Last Admin: 11/27/24 22:44 Dose: 1 tab Piperacillin Sod/Tazobactam (Sod 4.5 gm/ Sodium Chloride) 100 mls @ 200 mls/hr IV X1 ONE Stop: 11/28/24 03:34 Last Infusion: 11/28/24 06:05 Dose: Infused Doxycycline Hyclate 100 mg/ (Sodium Chloride) 100 mls @ 100 mls/hr IV X1 ONE Stop: 11/28/24 04:03 Last Infusion: 11/28/24 06:54 Dose: Infused Acetaminophen (Ofirmev Inj) 1,000 mg in 100 mls @ 250 mls/hr IV X1 ONE Stop: 11/28/24 03:30 Last Infusion: 11/28/24 04:13 Dose: Infused Piperacillin Sod/Tazobactam (Sod 4.5 gm/ Sodium Chloride) 100 mls @ 200 mls/hr IV X1 ONE Stop: 11/28/24 04:08 Last Admin: 11/28/24 04:14 Dose: Not Given Doxycycline Hyclate 100 mg/ (Sodium Chloride) 100 mls @ 100 mls/hr IV X1 ONE Stop: 11/28/24 04:39 Last Admin: 11/28/24 04:14 Dose: Not Given Piperacillin/Tazobactam/Dextrose (Zosyn) 2.25 gm in 50 mls @ 100 mls/hr IV Q12HR ONE Stop: 11/28/24 09:35 Vancomycin HCl 2,000 mg/ (Sodium Chloride) 500 mls @ 150 mls/hr IV X1 ONE Stop: 11/28/24 12:30 Morphine Sulfate (Morphine Sulf Inj 10 Mg/Ml Vial) 2 mg IVP X1 ONE Stop: 11/28/24 03:11 Last Admin: 11/28/24 03:29 Dose: 2 mg Ondansetron HCl (Ondansetron Inj 2 Mg/Ml Inj 2 Ml) 4 mg IV X1 ONE; Protocol Stop: 11/28/24 03:11 Last Admin: 11/28/24 03:28 Dose: 4 mg Assessment & Plan Plan A 64-year-old wheelchair-bound female with past medical history of diabetes mellitus, hypertension, CAD s/p PCI, CHF, rheumatoid arthritis, COPD on 2 L oxygen at home ESRD on HD (M/W/F) presented to the hospital with chief complaints of pain and swelling in her vulvar area since 1week and admitted in the hospital for vulvar abscess # Vulvar abscess Likely progressed from folliculitis -Patient had a history of insulin-dependent diabetes mellitus -Initially developed as a small swelling for which she was prescribed cephalexin on outpatient basis -Continue to progress despite medication and associated with severe pain. Denies fever -On examination, entire vulvar area is indurated, mildly edematous, erythematous, with abscess of 4 x 3 cm with bloody discharge noted -Labs showed WBC 8.9, procalcitonin 0.38 -Ultrasound in the vulvar area showed soft tissue abscess of 9.8 x 1.[address] showed soft tissue abscess of 4.2 x 1.7 cm. Plan -Blood cultures and oral cultures are sent -MRSA nasal screen sent -Started on Zosyn 3.375 g IV twice daily [11/28- -Started on vancomycin [11/28- -Dr. Santiago was consulted and recommended medical management as of now-abscess already opened. -Referral to wound care # Insulin-dependent diabetes mellitus -Patient stated that she is using insulin as part as per sliding scale, mostly takes 2 units 3 times daily -Also on Mounjaro 10 mg every week -A1c as of 06/2024 is 5.5 Plan -Started on insulin sliding scale ACHS protocol -A1c ordered -Hypoglycemia protocol in place # CAD s/p PCI, CHF # Hypertension -Patient is following with Dr. Miguel as her upper cutter machine -Got multiple stents -Currently on Entresto, carvedilol, aspirin and clopidogrel -Does not appear to be fluid overloaded as of now Plan -Resumed her home medications -Will continue to monitor her blood pressures # ESRD on HD [M/W/F] -Patient is on HD since 2.5 years -Currently receiving dialysis through left sided tunneled dialysis catheter -Patient endorsed that she had a history of AV fistula placed for dialysis following which she developed steal syndrome -Likely due to multifactorial, diabetes mellitus, hypertension, contrast injury from PCI per patient -Last dialysis session was on 11/27/2024 Plan -Will continue to dialyze patient as per her routine schedule # Normocytic normochromic anemia -Hemoglobin at the time of admission is 11.4 -Likely anemia due to ESRD Plan -Erythropoietin injections during dialysis as needed # Mild hyperkalemia # Hyperphosphatemia Due to underlying ESRD -As of 11/27/2024, potassium is 5.7, phosphorus is 5.5 Plan -A dose of Kayexalate is given -Resumed her home sevelamer -Will continue to monitor electrolytes and correct accordingly. # COPD/asthma on 2 L oxygen -Patient endorsed that she still continues to smoke 1 to 2 cigarettes in a day -Continues 2liter oxygen uses at home only during nights Hospital Maintenance: Dispo: MedSurg DVT ppx: Heparin GI ppx: Not needed Diet: Renal, low carb consistent IV lines: Peripheral Code status: Full code Patient plan of care was discussed with the attending physician, Dr. Rhiannon Taveras, PGY1 Attending Provider Attestation/Addendum Patient seen and examined with resident physician Dr. Russ. Note reviewed, agree with findings and recommendations. Patient admitted with vulvar abscess-seen by surgery. No need for I&D as the abscess opened. Continue with IV antibiotics. Next dialysis scheduled for tomorrow.
[2024-11-28] MEDS: SOD POLYSTYRENE SULFON SUSP 15 GM/60 ML BTL 30 GM PO (10:13)
[2024-11-28] MEDS: Vancomycin Inj 2,000 MG in SODIUM CHLORIDE 0.9% 500 ML 500 ML 150 MG IV (10:13)
[2024-11-28] MEDS: SEVELAMER CARBONATE 800 MG TABLET PO (11:56)
--- NOTE | 2024-11-28 13:07 | PD.SURCONS ---
HPI Consult details Consult date: 11/28/24 Reason for consultation narrative: Cellulitis and suprapubic abscess Requesting physician: Jennifer Jurado History of present illness: A 64-year-old morbidly obese female with past medical history of diabetes mellitus, hypertension, CAD s/p PCI, CHF, rheumatoid arthritis, COPD on 2 L oxygen at home ESRD on HD (M/W/F) presented to the hospital with chief complaints of pain and swelling in her suprapubic area for 1 week. She is not sure if she was bitten by an insect or spider. She had some erythema that has been getting progressively worse. She has noted drainage and some bleeding since yesterday. She denies nausea, vomiting, fever or chills. Review of Systems Constitutional Constitutional: Denies chills and Denies fever(s) Cardiovascular Cardiovascular: Denies chest pain Respiratory Respiratory: Denies cough Gastrointestinal Gastrointestinal: Reports abdominal pain, Denies nausea and Denies vomiting Hematologic/Lymphatic Hematologic/Lymphatic: Denies easy bleeding and Reports easy bruising Past Medical History Surgical History OTHER SURGICAL HX: Open cholecystectomy, , total knee replacement, appendectomy, carpal tunnel release, left upper extremity arteriovenous fistula that failed Meds Home Medications and Allergies Home Medications ?Medication ?Instructions ?Recorded ?Confirmed ?Type aspirin 81 mg tablet,delayed 81 mg PO QDAY ##0 10/22/14 11/28/24 History release albuterol sulfate 90 mcg/actuation 2 inh inhalation TID PRN Shortness 09/02/22 11/28/24 History aerosol inhaler Of Breath Or Wheezing atorvastatin 20 mg tablet 20 mg PO QDAY 09/02/22 11/28/24 History carvedilol 12.5 mg tablet 12.5 mg PO BID 09/02/22 11/28/24 History clopidogrel 75 mg tablet (Plavix) 75 mg PO QDAY 09/02/22 11/28/24 History hydrocodone 5 mg-acetaminophen 325 1 tab PO DAILY 09/02/22 11/28/24 History mg tablet insulin aspart U-100 100 unit/mL 5 unit subcut TIDWM 09/02/22 11/28/24 History (3 mL) subcutaneous pen (Novolog FlexPen U-100 Insulin aspart) loratadine 10 mg tablet 10 mg PO QDAY 09/02/22 11/28/24 History midodrine 5 mg tablet 5 mg PO BID 09/02/22 11/28/24 History pregabalin 100 mg capsule 100 mg PO BID 09/02/22 11/28/24 History sacubitril 97 mg-valsartan 103 mg 1 tab PO BID 09/02/22 11/28/24 History tablet (Entresto) blood sugar diagnostic (Accu-Chek 03/30/23 11/28/24 History Guide test strips) duloxetine 20 mg capsule,delayed 20 mg PO QDAY 03/30/23 11/28/24 History release pen needle, diabetic 32 gauge x 03/30/23 11/28/24 History 1/4 (BD Ultra-Fine Micro Pen Needle) sevelamer carbonate 800 mg tablet 2,400 mg PO TID 03/30/23 11/28/24 History tirzepatide 5 mg/0.5 mL 5 mg subcut QWEEK 03/30/23 11/28/24 History subcutaneous pen injector (Nicki) vitamin B complex-vitamin C-folic 1 tab PO QDAY 03/30/23 11/28/24 History acid 0.8 mg tablet (Lori-Stephanie) Allergies Allergy/AdvReac Type Severity Reaction Status Date / Time clarithromycin Allergy Severe RASH Verified 07/25/24 13:19 Exam Vital Signs Temp Pulse Resp BP Pulse Ox O2 Del Method 97.2 F 72 16 135/80 H 99 Room Air 11/28/24 12:00 11/28/24 12:00 11/28/24 12:00 11/28/24 12:00 11/28/24 12:00 11/28/24 12:00 Constitutional Constitutional: no acute distress Routine Abdominal Exam Abdominal: Present soft and normoactive bowel sounds; Absent distended Comments: She has cellulitis in suprapubic region with an open wound with minimal purulent drainage Assessment & Plan Additional Assessment Additional comments: Cellulitis and abscess of suprapubic region. Abscess spontaneously drained. The wound was explored with a Q-tip, no further purulent drainage or abscess cavities noted Plan Continue IV antibiotics and local wound care. No evidence of residual abscess or fluctuance at this time
[2024-11-28] MEDS: HEPARIN SOD INJ 5000 UNIT/ML VIAL SC ×2 (13:20→21:41)
[2024-11-28] MEDS: ACETAMINOPHEN 325 MG TABLET 650 MG PO (13:20)
[2024-11-28] MEDS: CLINDAMYCIN 900MG IVPB 900 MG in PRE-MIXED 1 BAG 50 MG IV ×2 (14:34→21:39)
[2024-11-28] MEDS: ASPIRIN EC 81 MG TABEC PO (15:38)
[2024-11-28] MEDS: DULoxetine HCL 20 MG CAPSULE PO (15:38)
[2024-11-28] MEDS: VIT B12/Vit C/FA (Nephrovite) TABLET 1 TAB PO (15:38)
[2024-11-28] MEDS: CLOPIDOGREL BISULFATE 75 MG TABLET PO (15:38)
[2024-11-28] MEDS: carVEDILOL 12.5 MG TABLET PO (21:20)
[2024-11-28] MEDS: PREGABALIN 50 MG CAPSULE 100 MG PO (21:20)
[2024-11-28] MEDS: SACUBITRIL 24 MG/VALSARTAN 26 MG TABLET 4 TAB PO (21:20)
[2024-11-28] MEDS: ATORVASTATIN CALCIUM 20 MG TABLET PO (21:20)
[2024-11-28] MEDS: SEVELAMER CARBONATE 800 MG TABLET 2400 MG PO (21:41)
[2024-11-29] VITALS (28 sets, daily range): BP systolic 85–156; BP diastolic 51–98; PULSE 64–84; RESP 16–20; TEMP 36–36.3; O2SAT 95–99
[2024-11-29] MEDS: PIPER/TAZO INJ 3.375 GM in SODIUM CHLORIDE 0.9% (Popper) 50 ML IV ×3 (00:10→22:51)
[2024-11-29] MEDS: HEPARIN SOD INJ 5000 UNIT/ML VIAL SC ×3 (05:32→21:26)
[2024-11-29] MEDS: CLINDAMYCIN 900MG IVPB 900 MG in PRE-MIXED 1 BAG 50 MG IV ×3 (05:32→21:26)
[2024-11-29] MEDS: SEVELAMER CARBONATE 800 MG TABLET 2400 MG PO ×3 (05:34→21:24)
[2024-11-29 06:04] LABS: Basophils % (Auto) 0 % (0-2.5); Eosinophils # (Auto) 0.2 Thou/mm3 (0.0-0.5); Eosinophils % (Auto) 2 % (0-10); Hematocrit 35.2 % (36.0-46.0); Hemoglobin 10.8 g/dL (12.0-16.0); Immature Granulocytes % (Auto) 1 % (0-0); Immature Granulocytes Auto 0.03 Thou/mm3 (0.00-0.00); Lymphocytes # (Auto) 1.3 Thou/mm3 (1.0-4.8); Lymphocytes % (Auto) 19 % (10-50); Mean Corpuscular HGB Conc 30.7 g/dl (31.0-37.0); Mean Corpuscular Hemoglobin 30.2 pg (25.0-35.0); Mean Corpuscular Volume 98 fL (80-100); Monocytes # (Auto) 0.8 Thou/mm3 (0.0-0.8); Monocytes % (Auto) 12 % (0-12); Neutrophils # (Auto) 4.3 Thou/mm3 (1.8-7.7); Neutrophils % (Auto) 66 % (37-80); Nucleated Red Blood Cell % 0 /100 WBC (0); Platelet Count 218 Thou/mm3 (140-440); RDW Standard Deviation 50.1 fL (36.4-46.3); Red Blood Count 3.58 Miln/mm3 (4.00-5.20); White Blood Count 6.5 Thou/mm3 (3.6-11.0)
[2024-11-29 06:41] LABS: Glucose Estimated Average 103 mg/dL (80-131); Hemoglobin A1C 5.2 % Hgb (4.8-6.0)
[2024-11-29 06:42] LABS: Alanine Aminotransferase 54 U/L (10-49); Albumin, Serum 3.6 gm/dL (3.4-4.8); Albumin/Globulin Ratio 1.4 (1.2-2.2); Alkaline Phosphatase 151 U/L (46-116); Anion Gap 8 (7-16); Aspartate Amino Transferase 49 U/L (0-34); BUN/Creatinine Ratio 10 Ratio (12-20); Bilirubin,Total < 0.2 mg/dL (0.3-1.2); Blood Urea Nitrogen 66 mg/dL (9-23); Calcium 8.1 mg/dL (8.3-10.6); Calcium (Corrected) 8.4 mg/dL (8.5-10.1); Carbon Dioxide 28.8 mMol/L (20.0-31.0); Chloride 102 mMol/L (98-107); Creatinine (Component) 6.9 mg/dL (0.6-1.3); Estimated Creatinine Clearance 10.7 mL/min (>60); Globulin 2.6 gm/dL (2.3-3.5); Glucose 88 mg/dL (74-106); Osmolality,Calculated 295 (275-295); Phosphorous 8.3 mg/dL (2.4-5.1); Sodium 139 mMol/L (136-145); Total Protein 6.2 gm/dL (5.7-8.2); Vancomycin,Random 19.5 mcg/mL; eGFR 6 See Note
[2024-11-29 06:45] LABS: Potassium 7.5 mMol/L (3.4-5.1)
[2024-11-29] MEDS: MIDODRINE 5 MG TABLET PO (07:41)
--- NOTE | 2024-11-29 08:23 | PC.NURSE ---
Dr. Jurado at bedside, order received for PT and OOB in chair twice a day. Pt transferred to HD by Gio via bed.
[2024-11-29 09:46] LABS: Parathyroid Hormone Intact 235.3 pg/ml (18.5-88.0)
[2024-11-29 09:55] LABS: Alanine Aminotransferase 49 U/L (10-49); Albumin, Serum 3.4 gm/dL (3.4-4.8); Albumin/Globulin Ratio 1.5 (1.2-2.2); Alkaline Phosphatase 149 U/L (46-116); Anion Gap 5 (7-16); Aspartate Amino Transferase 41 U/L (0-34); BUN/Creatinine Ratio 10 Ratio (12-20); Bilirubin,Total < 0.2 mg/dL (0.3-1.2); Blood Urea Nitrogen 62 mg/dL (9-23); Calcium 7.9 mg/dL (8.3-10.6); Calcium (Corrected) 8.4 mg/dL (8.5-10.1); Carbon Dioxide 31.6 mMol/L (20.0-31.0); Chloride 102 mMol/L (98-107); Estimated Creatinine Clearance 12.3 mL/min (>60); Globulin 2.2 gm/dL (2.3-3.5); Glucose 124 mg/dL (74-106); Osmolality,Calculated 296 (275-295); Sodium 139 mMol/L (136-145); Total Protein 5.6 gm/dL (5.7-8.2); eGFR 7 See Note
[2024-11-29 10:04] LABS: Vitamin D 25 Hydroxy Total 52.4 ng/mL (7.3-40.2)
[2024-11-29 10:05] LABS: Potassium 6.3 mMol/L (3.4-5.1)
[2024-11-29] MEDS: EPOETIN ALFA-EPBX INJ 10,000 UNIT/ML VIAL (ESRD) 10000 UNIT SC (10:22)
[2024-11-29 11:25] LABS: Hepatitis A Antibody IgM Non Reactive (Non React); Hepatitis B Core Antibody IgM Non Reactive (Non React); Hepatitis B Surface Ab NonReact(Not Immune) (Immune); Hepatitis B Surface Antigen Non Reactive (Non React); Hepatitis C Antibody Non Reactive (Non React)
--- NOTE | 2024-11-29 11:38 | PD.SURPROG ---
Documentation for date of: 11/29/24 Subjective Subjective Narrative: Patient is seen and examined at dialysis unit. Her pain is improving Exam Vital Signs Temp Pulse Resp BP Pulse Ox O2 Del Method O2 Flow Rate 97.3 F 80 17 133/80 H 97 Nasal Cannula 3 11/29/24 08:32 11/29/24 11:30 11/29/24 08:32 11/29/24 11:30 11/29/24 08:32 11/29/24 07:29 11/29/24 08:32 Constitutional Constitutional: no acute distress Routine Abdominal Exam Comments: Suprapubic area still with significant cellulitis, however improved since yesterday. There are still some purulent drainage from the wound, no bleeding Assessment & Plan Assessment Additional comments: Cellulitis and abscess of suprapubic area, spontaneously draining Plan Continue IV antibiotics and wound care
--- NOTE | 2024-11-29 11:44 | PD.RESPRO ---
Documentation for date of: 11/29/24 Subjective Subjective Interval history: Patient was seen and examined at the bedside. Complaining of constipation. Endorsed that she is feeling overall well and pain seems to be decreased Vitals are stable. Labs showed potassium of 6.9. Blood cultures showed no growth after 24 hours. Patient was scheduled for routine dialysis as per schedule. Dulcolax suppositories and p.o. tabs were added Will continue antibiotics. Exam Vital Signs Temp Pulse Resp BP Pulse Ox O2 Del Method O2 Flow Rate 97.3 F 80 17 133/80 H 97 Nasal Cannula 3 11/29/24 08:32 11/29/24 11:30 11/29/24 08:32 11/29/24 11:30 11/29/24 08:32 11/29/24 07:29 11/29/24 08:32 Narrative Exam General: Awake. Obese. HEENT: Normocephalic, atraumatic, mucous membranes moist. Heart: Regular rate and rhythm, no murmurs. Lungs: Clear to auscultation with no wheezing or crackles. Abdomen: Soft, nondistended, nontender, positive bowel sounds. ?No guarding or rebound tenderness. Neurologic: Alert and oriented x3, no gross neurological deficit, and patient able to move all 4 extremities. Extremities: Bilateral 1+ pitting pedal edema noted Skin: No rash or ecchymoses. Objective Labs 11/30/24 04:57 11/30/24 04:57 Labs: Laboratory Results - last 24 hr 11/29/24 11/29/24 05:07 08:54 WBC 6.5 RBC 3.58 L Hgb 10.8 L Hct 35.2 L MCV 98 MCH 30.2 MCHC 30.7 L RDW Std Deviation 50.1 H Plt Count 218 Neut % (Auto) 66 Lymph % (Auto) 19 [place] % (Auto) 12 Eos % (Auto) 2 Baso % (Auto) 0 Neut # (Auto) 4.3 Lymph # (Auto) 1.3 [place] # (Auto) 0.8 Eos # (Auto) 0.2 Baso # (Auto) 0.0 Immature Gran # (Auto) 0.03 H Absolute Nucleated RBC 0.00 Immature Gran % 1 H Nucleated RBC % 0 Sodium 139 139 Potassium 7.5 H* D 6.3 H* D Chloride 102 102 Carbon Dioxide 28.8 31.6 H Anion Gap 8 5 L BUN 66 H 62 H Creatinine 6.9 H* D 6.0 H* D Estim Creat Clear Calc 10.7 L 12.3 L eGFR 6 L* 7 L* BUN/Creatinine Ratio 10 L 10 L Glucose [address] Glu mg/dL 103 Hemoglobin A1c 5.2 Calculated Osmolality 295 296 H Calcium 8.1 L 7.9 L Corrected Calcium 8.4 L 8.4 L Phosphorus 8.3 H Total Bilirubin < 0.2 L < 0.2 L AST 49 H 41 H ALT 54 H 49 Alkaline Phosphatase 151 H 149 H Total Protein 6.2 5.6 L Albumin 3.6 3.4 Globulin 2.6 2.2 L Albumin/Globulin Ratio 1.4 1.5 25-OH Vitamin D Total 52.4 H PTH Intact 235.3 H Random Vancomycin 19.5 Hepatitis A IgM Ab Non Reactive Hep Bs Antigen Non Reactive Hep Bs Antibody NonReact(Not Immune) L Hep B Core IgM Ab Non Reactive Hepatitis C Antibody Non Reactive Quality Measures Quality Measures none Assessment & Plan Assessment Current Active Medications: Generic Name Dose Route Start Last Admin Trade Name Freq PRN Reason Stop Dose Admin Acetaminophen 650 mg 11/28/24 10:33 11/28/24 13:20 Acetaminophen 325 Mg Tablet PO 12/28/24 10:32 650 mg Q6H PRN Administration Fever >100.5 or mild pain 1-3 Albuterol/Ipratropium 3 ml 11/28/24 10:33 Albuterol/Ipratropium (Duoneb) Rt Maida 3 Ml Nebu INH 12/28/24 12:59 Q6HRRT PRN wheeze Aspirin 81 mg 11/28/24 15:15 11/29/24 08:40 Aspirin Ec 81 Mg Tabec PO 12/28/24 15:14 Not Given QDAY GOLDEN Atorvastatin Calcium 20 mg 11/28/24 21:00 11/28/24 21:20 Atorvastatin Calcium 20 Mg Tablet PO 12/28/24 20:59 20 mg HS GOLDEN Administration Carvedilol 12.5 mg 11/28/24 21:00 11/29/24 08:41 Carvedilol 12.5 Mg Tablet PO 12/28/24 20:59 Not Given BID GOLDEN Clopidogrel Bisulfate 75 mg 11/28/24 15:15 11/29/24 08:42 Clopidogrel Bisulfate 75 Mg Tablet PO 12/28/24 15:14 Not Given QDAY GOLDEN Dextrose 25 ml 11/28/24 09:02 Dextrose 50%-Water Inj 50 Ml Syringe IV 12/28/24 09:01 Q15MIN PRN BG 50-70 responsive npo pt Dextrose 50 ml 11/28/24 09:02 Dextrose 50%-Water Inj 50 Ml Syringe IV 12/28/24 09:01 Q15MIN PRN BG <50 OR BG <70 & pt unresponsive Duloxetine HCl 20 mg 11/28/24 15:15 11/29/24 08:42 Duloxetine Hcl 20 Mg Capsule PO 12/28/24 15:14 Not Given QDAY GOLDEN Glucagon 1 mg 11/28/24 09:02 Glucagon Inj 1 Mg Vial IM Q15MIN PRN BG <70, and no IV access Heparin Sodium (Porcine) 5,000 unit 11/28/24 14:00 11/29/24 05:32 Heparin Sod Inj 5000 Unit/Ml Vial SC 12/12/24 13:59 5,000 unit Q8HR GOLDEN Administration Heparin Sodium (Porcine) 3,900 unit 11/29/24 08:58 Heparin Sod Inj 1000 Unit/Ml Vial 10 Ml INDWELLCAT 12/13/24 08:57 X1 PRN DIALYSIS Clindamycin Phosphate 900 mg/ 50 mls @ 50 mls/hr 11/28/24 14:00 11/29/24 05:32 IV Miscellaneous Supplies IV 12/05/24 13:59 50 mls/hr Q8HR GOLDEN Administration Piperacillin Sod/Tazobactam 50 mls @ 12.5 mls/hr 11/29/24 00:00 11/29/24 06:00 Sod 3.375 gm/ Sodium Chloride IV 12/06/24 00:00 Not Given Q8HR GOLDEN Protocol Insulin Human Lispro 0 unit 11/28/24 11:30 11/29/24 07:41 Insulin Lispro (Admelog) 1 Unit/0.01 Ml Unit SC 12/28/24 11:29 Not Given ACHS [facility] Protocol Magnesium Hydroxide 30 ml 11/28/24 10:33 Milk Of Magnesia Susp 30 Ml Udc PO 12/28/24 10:32 QDAY PRN CONSTIPATION Protocol Midodrine 5 mg 11/28/24 15:10 11/29/24 07:41 Midodrine 5 Mg Tablet PO 12/28/24 20:59 5 mg BID PRN Administration sbp<100 Ondansetron HCl 4 mg 11/28/24 10:33 Ondansetron Inj 2 Mg/Ml Inj 2 Ml IV 12/28/24 10:32 Q6H PRN NAUSEA OR VOMITING Protocol Pharmacy Consult 1 each 11/28/24 09:15 Vancomycin Pharmacy To Dose 1 Each Each IV 12/28/24 09:14 QDAY PRN PROTOCOL Pregabalin 100 mg 11/28/24 21:00 11/29/24 08:42 Pregabalin 50 Mg Capsule PO 12/28/24 20:59 Not Given BID GOLDEN Sacubitril/Valsartan 4 tab 11/28/24 21:00 11/29/24 08:42 Sacubitril 24 Mg/Valsartan 26 Mg Tablet PO 12/28/24 20:59 Not Given BID GOLDEN Sevelamer Carbonate 2,400 mg 11/28/24 22:00 11/29/24 05:34 Sevelamer Carbonate 800 Mg Tablet PO 12/28/24 21:59 2,400 mg TID GOLDEN Administration Vitamin B Complex/Vit C/Folic Acid 1 tab 11/28/24 15:15 11/29/24 08:42 Vit B12/Vit C/Fa (Nephrovite) Tablet PO 12/28/24 15:14 Not Given QDAY GOLDEN Plan A 64-year-old wheelchair-bound female with past medical history of diabetes mellitus, hypertension, CAD s/p PCI, CHF, rheumatoid arthritis, COPD on 2 L oxygen at home ESRD on HD (M/W/F) presented to the hospital with chief complaints of pain and swelling in her vulvar area since 1week and admitted in the hospital for vulvar abscess # Vulvar abscess Likely progressed from folliculitis -Patient had a history of insulin-dependent diabetes mellitus -Initially developed as a small swelling for which she was prescribed cephalexin on outpatient basis -Continue to progress despite medication and associated with severe pain. Denies fever -On examination, entire vulvar area is indurated, mildly edematous, erythematous, with abscess of 4 x 3 cm with bloody discharge noted -Labs showed WBC 8.9, procalcitonin 0.38 -Ultrasound in the vulvar area showed soft tissue abscess of 9.8 x 1.[address] showed soft tissue abscess of 4.2 x 1.7 cm. Plan -Blood cultures and wound cultures are sent, pending results -MRSA nasal screen sent -Started on Zosyn 3.375 g IV twice daily [11/28- -Started on vancomycin [11/28- -Started on clindamycin as per Dr. Mccain's recommendation -Dr. Santiago was consulted and recommended medical management as of now-abscess already opened. -Referral to wound care done. 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 -Got multiple stents -Currently on Entresto, carvedilol, aspirin and clopidogrel -Does not appear to be fluid overloaded as of now Plan -Resumed her home medications -Will continue to monitor her blood pressures # ESRD on HD [M/W/F] -Patient is on HD since 2.5 years -Currently receiving dialysis through left sided tunneled dialysis catheter -Patient endorsed that she had a history of AV fistula placed for dialysis following which she developed steal syndrome -Likely due to multifactorial, diabetes mellitus, hypertension, contrast injury from PCI per patient -Last dialysis session was on 11/29/2024 Plan -Will continue to dialyze patient as per her routine schedule # Normocytic normochromic anemia -Hemoglobin at the time of admission is 11.4 -Likely anemia due to ESRD Plan -Erythropoietin injections during dialysis as needed # Hyperkalemia # Hyperphosphatemia Due to underlying ESRD -As of 11/29/2024, potassium is 8.3 Plan -Resumed her home sevelamer -Patient underwent HD today -Will continue to monitor electrolytes and correct accordingly. # COPD/asthma on 2 L oxygen -Patient endorsed that she still continues to smoke 1 to 2 cigarettes in a day -Continues 2liter oxygen uses at home only during nights Hospital Maintenance: Dispo: MedSurg DVT ppx: Heparin GI ppx: Not needed Diet: Renal, low carb consistent IV lines: Peripheral Code status: Full code Patient plan of care was discussed with the attending physician, Dr. Rhiannon Taveras, PGY1 Attending Provider Attestation/Addendum Patient seen and examined with resident physician Dr. Russ. Note reviewed, agree with findings and recommendations. Patient currently seen on dialysis. Tolerating dialysis without any problems. Hemodialysis for 3 hours, 2K, ultrafiltration 2-3 L, Epogen 6000, no heparin ordered. Plan of care discussed with the dialysis nurse. Please see dialysis flowsheet for further details.
[2024-11-29] MEDS: bisacodyL 10 MG SUPP PR (14:36)
--- NOTE | 2024-11-29 15:44 | PC.SS ---
SS met with patient regarding d/c plan.? Pt is alert/oriented.? Pt was admitted for Abscess In Vaginal Area.? Pt confirmed demographic and contact information is correct on facesheet.? Pt resides with dtr and daughter's family.? Pt transfers with assistance into wheelchair.? Pt requires assistance with ADLs.? Pt named her dtr, Chaya Kirkland medical decision maker if she is unable.? SS provided verbal choices for d/c to home or SNF.? Patient?s choice is to return home upon d/c.? Pt uses O2 at home from [facility].? Pt is established with out pt dialysis.? SS spoke to Dariela from [facility] who provide patient's dailysis chair time MWF at 6am and utilizes 1800 transport Medivan.?? D/C plan:? Return home Next of Kin:? Leticia Kirkland dtr, phone# [phone] PCP:? Dr. Jurado Address:? Correct on facesheet
[2024-11-29] MEDS: Milk Of Magnesia Susp 30 ML UDC PO (19:18)
[2024-11-29] MEDS: SACUBITRIL 24 MG/VALSARTAN 26 MG TABLET 4 TAB PO (20:57)
[2024-11-29] MEDS: PREGABALIN 50 MG CAPSULE 100 MG PO (20:59)
[2024-11-29] MEDS: ATORVASTATIN CALCIUM 20 MG TABLET PO (20:59)
[2024-11-29] MEDS: carVEDILOL 12.5 MG TABLET PO (20:59)
[2024-11-29] MEDS: INSULIN LISPRO (AdmeLOG) 1 UNIT/0.01 ML UNIT SC (21:25)
[2024-11-30] VITALS (9 sets, daily range): BP systolic 116–153; BP diastolic 50–70; PULSE 67–87; RESP 15–19; TEMP 36.2–36.8; O2SAT 93–99; BMI 12.0
[2024-11-30] MEDS: CLINDAMYCIN 900MG IVPB 900 MG in PRE-MIXED 1 BAG 50 MG IV ×3 (05:37→22:05)
[2024-11-30] MEDS: HEPARIN SOD INJ 5000 UNIT/ML VIAL SC ×3 (05:40→22:07)
[2024-11-30] MEDS: SEVELAMER CARBONATE 800 MG TABLET 2400 MG PO ×3 (05:41→17:37)
[2024-11-30 06:07] LABS: Basophils # (Auto) 0.1 Thou/mm3 (0.0-0.2); Basophils % (Auto) 1 % (0-2.5); Eosinophils # (Auto) 0.1 Thou/mm3 (0.0-0.5); Eosinophils % (Auto) 1 % (0-10); Hematocrit 36.4 % (36.0-46.0); Hemoglobin 13.8 g/dL (12.0-16.0); Immature Granulocytes % (Auto) 1 % (0-0); Immature Granulocytes Auto 0.08 Thou/mm3 (0.00-0.00); Lymphocytes # (Auto) 1.9 Thou/mm3 (1.0-4.8); Lymphocytes % (Auto) 23 % (10-50); Mean Corpuscular HGB Conc 37.9 g/dl (31.0-37.0); Mean Corpuscular Volume 98 fL (80-100); Monocytes # (Auto) 0.8 Thou/mm3 (0.0-0.8); Monocytes % (Auto) 9 % (0-12); Neutrophils # (Auto) 5.3 Thou/mm3 (1.8-7.7); Neutrophils % (Auto) 65 % (37-80); Nucleated Red Blood Cell % 0 /100 WBC (0); Platelet Count 237 Thou/mm3 (140-440); RDW Standard Deviation 50.2 fL (36.4-46.3); Red Blood Count 3.73 Miln/mm3 (4.00-5.20); White Blood Count 8.2 Thou/mm3 (3.6-11.0)
[2024-11-30] MEDS: PIPER/TAZO INJ 3.375 GM in SODIUM CHLORIDE 0.9% (Popper) 50 ML IV ×2 (06:45→22:04)
[2024-11-30 07:28] LABS: Alanine Aminotransferase 37 U/L (10-49); Albumin, Serum 3.9 gm/dL (3.4-4.8); Albumin/Globulin Ratio 1.4 (1.2-2.2); Alkaline Phosphatase 136 U/L (46-116); Anion Gap 6 (7-16); Aspartate Amino Transferase 20 U/L (0-34); BUN/Creatinine Ratio 7 Ratio (12-20); Bilirubin,Total < 0.2 mg/dL (0.3-1.2); Blood Urea Nitrogen 37 mg/dL (9-23); Calcium 8.9 mg/dL (8.3-10.6); Carbon Dioxide 32.2 mMol/L (20.0-31.0); Chloride 100 mMol/L (98-107); Estimated Creatinine Clearance 14.8 mL/min (>60); Globulin 2.8 gm/dL (2.3-3.5); Glucose 93 mg/dL (74-106); Osmolality,Calculated 284 (275-295); Potassium 5.1 mMol/L (3.4-5.1); Sodium 138 mMol/L (136-145); Total Protein 6.7 gm/dL (5.7-8.2); Vancomycin,Random 15.4 mcg/mL; eGFR 9 See Note
--- NOTE | 2024-11-30 08:41 | ESPR_ITS ---
Documentation for date of: 11/30/24 Subjective Subjective Interval history: Patient was seen and examined bedside. No acute overnight events. Notes that she did not have good sleep last night and still complaining of constipation. Patient had a small bowel movement yesterday but still feeling constipated Area around abscess still appears to be Swollen, erythematous and tender Labs done today showed sodium 138, potassium 5.1. Blood culture showed no growth after 48 hours. Wound culture showed MRSA. MRSA nasal screen is still pending Will continue Zosyn, clindamycin, vancomycin for now Exam Vital Signs Temp Pulse Resp BP Pulse Ox O2 Del Method O2 Flow Rate 97.8 F 77 15 121/50 L 99 Nasal Cannula 3 11/30/24 07:28 11/30/24 07:28 11/30/24 07:28 11/30/24 07:28 11/30/24 07:28 11/30/24 07:28 11/30/24 07:28 Narrative Exam General: Awake. Obese. HEENT: Normocephalic, atraumatic, mucous membranes moist. Heart: Regular rate and rhythm, no murmurs. Lungs: Clear to auscultation with no wheezing or crackles. Abdomen: Soft, nondistended, nontender, positive bowel sounds. ?No guarding or rebound tenderness. Neurologic: Alert and oriented x3, no gross neurological deficit, and patient able to move all 4 extremities. Extremities: Bilateral 1+ pitting pedal edema noted Skin: 4 x 3 cm ulceration with tenderness erythema around that area is seen in vulvar region. Objective Labs 11/30/24 04:57 11/30/24 04:57 Labs: Laboratory Results - last 24 hr 11/29/24 11/30/24 08:54 04:57 WBC 8.2 RBC 3.73 L Hgb 13.8 D Hct 36.4 MCV 98 MCH 37.0 H MCHC 37.9 H RDW Std Deviation 50.2 H Plt Count 237 Neut % (Auto) 65 Lymph % (Auto) 23 [place] % (Auto) 9 Eos % (Auto) 1 Baso % (Auto) 1 Neut # (Auto) 5.3 Lymph # (Auto) 1.9 [place] # (Auto) 0.8 Eos # (Auto) 0.1 Baso # (Auto) 0.1 Immature Gran # (Auto) 0.08 H Absolute Nucleated RBC 0.00 Immature Gran % 1 H Nucleated RBC % 0 Sodium 139 138 Potassium 6.3 H* D 5.1 D Chloride 102 100 Carbon Dioxide 31.6 H 32.2 H Anion Gap 5 L 6 L BUN 62 H 37 H Creatinine 6.0 H* D 5.0 H* D Estim Creat Clear Calc 12.3 L 14.8 L eGFR 7 L* 9 L* BUN/Creatinine Ratio 10 L 7 L Glucose 124 H 93 Calculated Osmolality 296 H 284 Calcium 7.9 L 8.9 Corrected Calcium 8.4 L 9.0 Total Bilirubin < 0.2 L < 0.2 L AST 41 H 20 ALT 49 37 Alkaline Phosphatase 149 H 136 H Total Protein 5.6 L 6.7 Albumin 3.4 3.9 D Globulin 2.2 L 2.8 Albumin/Globulin Ratio 1.5 1.4 25-OH Vitamin D Total 52.4 H PTH Intact 235.3 H Random Vancomycin 15.4 Hepatitis A IgM Ab Non Reactive Hep Bs Antigen Non Reactive Hep Bs Antibody NonReact(Not Immune) L Hep B Core IgM Ab Non Reactive Hepatitis C Antibody Non Reactive Quality Measures Quality Measures none Assessment & Plan Assessment Current Active Medications: Generic Name Dose Route Start Last Admin Trade Name Freq PRN Reason Stop Dose Admin Acetaminophen 650 mg 11/28/24 10:33 11/28/24 13:20 Acetaminophen 325 Mg Tablet PO 12/28/24 10:32 650 mg Q6H PRN Administration Fever >100.5 or mild pain 1-3 Albuterol/Ipratropium 3 ml 11/28/24 10:33 Albuterol/Ipratropium (Duoneb) Rt Maida 3 Ml Nebu INH 12/28/24 12:59 Q6HRRT PRN wheeze Aspirin 81 mg 11/28/24 15:15 11/29/24 08:40 Aspirin Ec 81 Mg Tabec PO 12/28/24 15:14 Not Given QDAY GOLDEN Atorvastatin Calcium 20 mg 11/28/24 21:00 11/29/24 20:59 Atorvastatin Calcium 20 Mg Tablet PO 12/28/24 20:59 20 mg HS GOLDEN Administration Bisacodyl 5 mg 11/29/24 11:45 Bisacodyl 5 Mg Tabec PO 12/29/24 11:44 QDAY PRN CONSTIPATION Protocol Carvedilol 12.5 mg 11/28/24 21:00 11/29/24 20:59 Carvedilol 12.5 Mg Tablet PO 12/28/24 20:59 12.5 mg BID GOLDEN Administration Clopidogrel Bisulfate 75 mg 11/28/24 15:15 11/29/24 08:42 Clopidogrel Bisulfate 75 Mg Tablet PO 12/28/24 15:14 Not Given QDAY GOLDEN Dextrose 25 ml 11/28/24 09:02 Dextrose 50%-Water Inj 50 Ml Syringe IV 12/28/24 09:01 Q15MIN PRN BG 50-70 responsive npo pt Dextrose 50 ml 11/28/24 09:02 Dextrose 50%-Water Inj 50 Ml Syringe IV 12/28/24 09:01 Q15MIN PRN BG <50 OR BG <70 & pt unresponsive Duloxetine HCl 20 mg 11/28/24 15:15 11/29/24 08:42 Duloxetine Hcl 20 Mg Capsule PO 12/28/24 15:14 Not Given QDAY GOLDEN Glucagon 1 mg 11/28/24 09:02 Glucagon Inj 1 Mg Vial IM Q15MIN PRN BG <70, and no IV access Heparin Sodium (Porcine) 5,000 unit 11/28/24 14:00 11/30/24 05:40 Heparin Sod Inj 5000 Unit/Ml Vial SC 12/12/24 13:59 5,000 unit Q8HR GOLDEN Administration Heparin Sodium (Porcine) 3,900 unit 11/29/24 08:58 Heparin Sod Inj 1000 Unit/Ml Vial 10 Ml INDWELLCAT 12/13/24 08:57 X1 PRN DIALYSIS Clindamycin Phosphate 900 mg/ 50 mls @ 50 mls/hr 11/28/24 14:00 11/30/24 05:37 IV Miscellaneous Supplies IV 12/05/24 13:59 50 mls/hr Q8HR GOLDEN Administration Piperacillin Sod/Tazobactam 50 mls @ 12.5 mls/hr 11/29/24 00:00 11/30/24 06:45 Sod 3.375 gm/ Sodium Chloride IV 12/06/24 00:00 12.5 mls/hr Q8HR GOLDEN Administration Protocol Vancomycin/Sodium Chloride 100 mls @ 120 mls/hr 11/30/24 10:00 Vancomycin/Ns 500 Mg Ivpb IV 11/30/24 10:49 X1 ONE Insulin Human Lispro 0 unit 11/28/24 11:30 11/30/24 07:52 Insulin Lispro (Admelog) 1 Unit/0.01 Ml Unit SC 12/28/24 11:29 Not Given ACHS GOLDEN Protocol Magnesium Hydroxide 30 ml 11/28/24 10:33 11/29/24 19:18 Milk Of Magnesia Susp 30 Ml Udc PO 12/28/24 10:32 30 ml QDAY PRN Administration CONSTIPATION Protocol Midodrine 5 mg 11/28/24 15:10 11/29/24 07:41 Midodrine 5 Mg Tablet PO 12/28/24 20:59 5 mg BID PRN Administration sbp<100 Ondansetron HCl 4 mg 11/28/24 10:33 Ondansetron Inj 2 Mg/Ml Inj 2 Ml IV 12/28/24 10:32 Q6H PRN NAUSEA OR VOMITING Protocol Pharmacy Consult 1 each 11/28/24 09:15 Vancomycin Pharmacy To Dose 1 Each Each IV 12/28/24 09:14 QDAY PRN PROTOCOL Pregabalin 100 mg 11/28/24 21:00 11/29/24 20:59 Pregabalin 50 Mg Capsule PO 12/28/24 20:59 100 mg BID GOLDEN Administration Sacubitril/Valsartan 4 tab 11/28/24 21:00 11/29/24 20:57 Sacubitril 24 Mg/Valsartan 26 Mg Tablet PO 12/28/24 20:59 4 tab BID GOLDEN Administration Sevelamer Carbonate 2,400 mg 11/28/24 22:00 11/30/24 05:41 Sevelamer Carbonate 800 Mg Tablet PO 12/28/24 21:59 2,400 mg TID GOLDEN Administration Vitamin B Complex/Vit C/Folic Acid 1 tab 11/28/24 15:15 11/29/24 08:42 Vit B12/Vit C/Fa (Nephrovite) Tablet PO 12/28/24 15:14 Not Given QDAY GOLDEN Plan A 64-year-old wheelchair-bound female with past medical history of diabetes mellitus, hypertension, CAD s/p PCI, CHF, rheumatoid arthritis, COPD on 2 L oxygen at home ESRD on HD (M/W/F) presented to the hospital with chief complaints of pain and swelling in her vulvar area since 1week and admitted in the hospital for vulvar abscess # Vulvar abscess Likely progressed from folliculitis -Patient had a history of insulin-dependent diabetes mellitus -Initially developed as a small swelling for which she was prescribed cephalexin on outpatient basis -Continue to progress despite medication and associated with severe pain. Denies fever -On examination, entire vulvar area is indurated, mildly edematous, erythematous, with abscess of 4 x 3 cm with bloody discharge noted -Labs showed WBC 8.9, procalcitonin 0.38 -Ultrasound in the vulvar area showed soft tissue abscess of 9.8 x 1.[address] showed soft tissue abscess of 4.2 x 1.7 cm. Plan -Blood cultures showed no growth after 48 hours -Wound culture showed MRSA -MRSA nasal screen sent, still pending -Started on Zosyn 3.375 g IV twice daily [11/28- -Started on vancomycin [11/28- -Started on clindamycin as per Dr. Mccain's recommendation -Dr. Santiago was consulted and recommended medical management as of now-abscess already opened. -Referral to wound care done. 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 -Got multiple stents -Currently on Entresto, carvedilol, aspirin and clopidogrel -Does not appear to be fluid overloaded as of now Plan -Resumed her home medications -Will continue to monitor her blood pressures # ESRD on HD [M/W/F] -Patient is on HD since 2.5 years -Currently receiving dialysis through left sided tunneled dialysis catheter -Patient endorsed that she had a history of AV fistula placed for dialysis following which she developed steal syndrome -Likely due to multifactorial, diabetes mellitus, hypertension, contrast injury from PCI per patient -Last dialysis session was on 11/29/2024 Plan -Will continue to dialyze patient as per her routine schedule # Normocytic normochromic anemia -Hemoglobin at the time of admission is 11.4 -Likely anemia due to ESRD Plan -Erythropoietin injections during dialysis as needed # Hyperkalemia, resolved # Hyperphosphatemia Due to underlying ESRD -As of 11/30/2024, potassium is 5.1 Plan -Resumed her home sevelamer -Patient underwent HD on 11/29/2024 -Will continue to monitor electrolytes and correct accordingly. # COPD/asthma on 2 L oxygen -Patient endorsed that she still continues to smoke 1 to 2 cigarettes in a day -Continues 2liter oxygen uses at home only during nights Hospital Maintenance: Dispo: MedSurg DVT ppx: Heparin GI ppx: Not needed Diet: Renal, low carb consistent IV lines: Peripheral Code status: Full code Patient plan of care was discussed with the attending physician, Dr. Rhiannon Taveras, PGY1 Attending Provider Attestation/Addendum Patient seen and examined with resident physician Dr. Russ. Note reviewed, agree with findings and recommendations. Vulvar abscess still erythematous and swollen. Continue with IV antibiotics. Wound care consultation requested. Next dialysis scheduled for tomorrow
[2024-11-30] MEDS: SACUBITRIL 24 MG/VALSARTAN 26 MG TABLET 4 TAB PO ×2 (10:02→22:05)
[2024-11-30] MEDS: VIT B12/Vit C/FA (Nephrovite) TABLET 1 TAB PO (10:15)
[2024-11-30] MEDS: ASPIRIN EC 81 MG TABEC PO (10:15)
[2024-11-30] MEDS: CLOPIDOGREL BISULFATE 75 MG TABLET PO (10:16)
[2024-11-30] MEDS: DULoxetine HCL 20 MG CAPSULE PO (10:16)
[2024-11-30] MEDS: PREGABALIN 50 MG CAPSULE 100 MG PO ×2 (10:16→22:06)
[2024-11-30] MEDS: carVEDILOL 12.5 MG TABLET PO ×2 (10:16→22:06)
[2024-11-30] MEDS: bisacodyL 5 MG TABEC PO (10:17)
[2024-11-30] MEDS: bisacodyL 10 MG SUPP PR (10:17)
[2024-11-30] MEDS: LACTULOSE SYRUP 20 GM/30 ML UDC PO (10:17)
[2024-11-30] MEDS: VANCOMYCIN/NS 500 MG IVPB 100 ML 120 MG IV (10:57)
[2024-11-30] MEDS: ATORVASTATIN CALCIUM 20 MG TABLET PO (22:06)
[2024-12-01] VITALS (23 sets, daily range): BP systolic 114–149; BP diastolic 60–78; PULSE 74–87; RESP 17–20; TEMP 36.4–36.9; O2SAT 94–99; BMI 48.7
[2024-12-01] MEDS: CLINDAMYCIN 900MG IVPB 900 MG in PRE-MIXED 1 BAG 50 MG IV ×3 (05:21→21:36)
[2024-12-01] MEDS: HEPARIN SOD INJ 5000 UNIT/ML VIAL SC ×3 (05:22→21:12)
[2024-12-01 05:43] LABS: Basophils % (Auto) 1 % (0-2.5); Eosinophils # (Auto) 0.2 Thou/mm3 (0.0-0.5); Eosinophils % (Auto) 2 % (0-10); Hemoglobin 10.1 g/dL (12.0-16.0); Immature Granulocytes % (Auto) 2 % (0-0); Immature Granulocytes Auto 0.12 Thou/mm3 (0.00-0.00); Lymphocytes # (Auto) 1.9 Thou/mm3 (1.0-4.8); Lymphocytes % (Auto) 24 % (10-50); Mean Corpuscular HGB Conc 31.6 g/dl (31.0-37.0); Mean Corpuscular Hemoglobin 30.3 pg (25.0-35.0); Mean Corpuscular Volume 96 fL (80-100); Monocytes # (Auto) 0.6 Thou/mm3 (0.0-0.8); Monocytes % (Auto) 8 % (0-12); Neutrophils # (Auto) 4.9 Thou/mm3 (1.8-7.7); Neutrophils % (Auto) 64 % (37-80); Nucleated Red Blood Cell # 0.02 Thou/mm3 (0.00-0.00); Nucleated Red Blood Cell % 0 /100 WBC (0); Platelet Count 220 Thou/mm3 (140-440); RDW Standard Deviation 49.4 fL (36.4-46.3); Red Blood Count 3.33 Miln/mm3 (4.00-5.20); White Blood Count 7.7 Thou/mm3 (3.6-11.0)
[2024-12-01 06:10] LABS: Alanine Aminotransferase 23 U/L (10-49); Albumin, Serum 3.5 gm/dL (3.4-4.8); Albumin/Globulin Ratio 1.3 (1.2-2.2); Alkaline Phosphatase 117 U/L (46-116); Anion Gap 8 (7-16); Aspartate Amino Transferase 14 U/L (0-34); BUN/Creatinine Ratio 7 Ratio (12-20); Bilirubin,Total < 0.2 mg/dL (0.3-1.2); Blood Urea Nitrogen 51 mg/dL (9-23); Calcium 8.2 mg/dL (8.3-10.6); Calcium (Corrected) 8.6 mg/dL (8.5-10.1); Carbon Dioxide 29.8 mMol/L (20.0-31.0); Chloride 98 mMol/L (98-107); Estimated Creatinine Clearance 10.6 mL/min (>60); Globulin 2.6 gm/dL (2.3-3.5); Glucose 88 mg/dL (74-106); Osmolality,Calculated 284 (275-295); Potassium 5.8 mMol/L (3.4-5.1); Sodium 136 mMol/L (136-145); Total Protein 6.1 gm/dL (5.7-8.2); Vancomycin,Random 20.3 mcg/mL; eGFR 6 See Note
--- NOTE | 2024-12-01 10:00 | ESPR_ITS ---
Documentation for date of: 12/01/24 Subjective Subjective Interval history: Patient was seen and examined in the dialysis unit Reported that she is feeling overall well. Patient was supposed to get Mounjaro as per her routine but could not get it because her daughter is sick and could not come to hospital No acute overnight events. Labs showed potassium of 5.8, but patient was scheduled for dialysis so no other medications were given As and cultures and MRSA nasal screen came back positive for MRSA, will continue vancomycin and clindamycin, Zosyn was discontinued On physical examination, the redness and swelling is resolving at the site of abscess-will continue antibiotics for 2 more days Exam Vital Signs Temp Pulse Resp BP Pulse Ox O2 Del Method O2 Flow Rate 97.5 F 79 20 135/70 H 96 Nasal Cannula 2 12/01/24 07:42 12/01/24 09:47 12/01/24 07:42 12/01/24 09:47 12/01/24 07:42 12/01/24 04:00 12/01/24 07:42 Narrative Exam General: Awake. Obese. HEENT: Normocephalic, atraumatic, mucous membranes moist. Heart: Regular rate and rhythm, no murmurs. Lungs: Clear to auscultation with no wheezing or crackles. Abdomen: Soft, nondistended, nontender, positive bowel sounds. ?No guarding or rebound tenderness. Neurologic: Alert and oriented x3, no gross neurological deficit, and patient able to move all 4 extremities. Extremities: Bilateral 1+ pitting pedal edema noted Skin: 4 x 3 cm ulceration with resolving tenderness erythema around that area is seen in vulvar region. Objective Labs 12/02/24 05:01 12/02/24 05:01 Labs: Laboratory Results - last 24 hr 12/01/24 04:52 WBC 7.7 RBC 3.33 L Hgb 10.1 L D Hct 32.0 L MCV 96 MCH 30.3 MCHC 31.6 RDW Std Deviation 49.4 H Plt Count 220 Neut % (Auto) 64 Lymph % (Auto) 24 [place] % (Auto) 8 Eos % (Auto) 2 Baso % (Auto) 1 Neut # (Auto) 4.9 Lymph # (Auto) 1.9 Clarke # (Auto) 0.6 Eos # (Auto) 0.2 Baso # (Auto) 0.0 Immature Gran # (Auto) 0.12 H Absolute Nucleated RBC 0.02 H Immature Gran % 2 H Nucleated RBC % 0 Sodium 136 Potassium 5.8 H D Chloride 98 Carbon Dioxide 29.8 Anion Gap 8 BUN 51 H Creatinine 7.0 H* D Estim Creat Clear Calc 10.6 L eGFR 6 L* BUN/Creatinine Ratio 7 L Glucose 88 Calculated Osmolality 284 Calcium 8.2 L Corrected Calcium 8.6 Total Bilirubin < 0.2 L AST 14 ALT 23 Alkaline Phosphatase 117 H Total Protein 6.1 Albumin 3.5 Globulin 2.6 Albumin/Globulin Ratio 1.3 Random Vancomycin 20.3 Quality Measures Quality Measures none Assessment & Plan Assessment Current Active Medications: Generic Name Dose Route Start Last Admin Trade Name Freq PRN Reason Stop Dose Admin Acetaminophen 650 mg 11/28/24 10:33 11/28/24 13:20 Acetaminophen 325 Mg Tablet PO 12/28/24 10:32 650 mg Q6H PRN Administration Fever >100.5 or mild pain 1-3 Albuterol/Ipratropium 3 ml 11/28/24 10:33 Albuterol/Ipratropium (Duoneb) Rt Maida 3 Ml Nebu INH 12/28/24 12:59 Q6HRRT PRN wheeze Aspirin 81 mg 11/28/24 15:15 12/01/24 09:57 Aspirin Ec 81 Mg Tabec PO 12/28/24 15:14 Not Given QDAY GOLDEN Atorvastatin Calcium 20 mg 11/28/24 21:00 11/30/24 22:06 Atorvastatin Calcium 20 Mg Tablet PO 12/28/24 20:59 20 mg HS GOLDEN Administration Bisacodyl 5 mg 11/29/24 11:45 11/30/24 10:17 Bisacodyl 5 Mg Tabec PO 12/29/24 11:44 5 mg QDAY PRN Administration CONSTIPATION Protocol Bisacodyl 10 mg 11/30/24 10:00 11/30/24 10:17 Bisacodyl 10 Mg Supp WA 12/30/24 09:59 10 mg QDAY PRN Administration CONSTIPATION Protocol Carvedilol 12.5 mg 11/28/24 21:00 12/01/24 09:57 Carvedilol 12.5 Mg Tablet PO 12/28/24 20:59 Not Given BID GOLDEN Clopidogrel Bisulfate 75 mg 11/28/24 15:15 11/30/24 10:16 Clopidogrel Bisulfate 75 Mg Tablet PO 12/28/24 15:14 75 mg QDAY GOLDEN Administration Dextrose 25 ml 11/28/24 09:02 Dextrose 50%-Water Inj 50 Ml Syringe IV 12/28/24 09:01 Q15MIN PRN BG 50-70 responsive npo pt Dextrose 50 ml 11/28/24 09:02 Dextrose 50%-Water Inj 50 Ml Syringe IV 12/28/24 09:01 Q15MIN PRN BG <50 OR BG <70 & pt unresponsive Duloxetine HCl 20 mg 11/28/24 15:15 11/30/24 10:16 Duloxetine Hcl 20 Mg Capsule PO 12/28/24 15:14 20 mg QDAY GOLDEN Administration Glucagon 1 mg 11/28/24 09:02 Glucagon Inj 1 Mg Vial IM Q15MIN PRN BG <70, and no IV access Heparin Sodium (Porcine) 5,000 unit 11/28/24 14:00 12/01/24 05:22 Heparin Sod Inj 5000 Unit/Ml Vial SC 12/12/24 13:59 5,000 unit Q8HR GOLDEN Administration Heparin Sodium (Porcine) 3,900 unit 11/29/24 08:58 Heparin Sod Inj 1000 Unit/Ml Vial 10 Ml INDWELLCAT 12/13/24 08:57 X1 PRN DIALYSIS Clindamycin Phosphate 900 mg/ 50 mls @ 50 mls/hr 11/28/24 14:00 12/01/24 05:21 IV Miscellaneous Supplies IV 12/05/24 13:59 50 mls/hr Q8HR GOLDEN Administration Insulin Human Lispro 0 unit 11/28/24 11:30 12/01/24 07:58 Insulin Lispro (Admelog) 1 Unit/0.01 Ml Unit SC 12/28/24 11:29 Not Given ACHS GOLDEN Protocol Magnesium Hydroxide 30 ml 11/28/24 10:33 11/29/24 19:18 Milk Of Magnesia Susp 30 Ml Udc PO 12/28/24 10:32 30 ml QDAY PRN Administration CONSTIPATION Protocol Midodrine 5 mg 11/28/24 15:10 11/29/24 07:41 Midodrine 5 Mg Tablet PO 12/28/24 20:59 5 mg BID PRN Administration sbp<100 Ondansetron HCl 4 mg 11/28/24 10:33 Ondansetron Inj 2 Mg/Ml Inj 2 Ml IV 12/28/24 10:32 Q6H PRN NAUSEA OR VOMITING Protocol Pharmacy Consult 1 each 11/28/24 09:15 Vancomycin Pharmacy To Dose 1 Each Each IV 12/28/24 09:14 QDAY PRN PROTOCOL Pregabalin 100 mg 11/28/24 21:00 12/01/24 09:57 Pregabalin 50 Mg Capsule PO 12/28/24 20:59 Not Given BID GOLDEN Sacubitril/Valsartan 4 tab 11/28/24 21:00 12/01/24 09:58 Sacubitril 24 Mg/Valsartan 26 Mg Tablet PO 12/28/24 20:59 Not Given BID GOLDEN Sevelamer Carbonate 2,400 mg 11/30/24 12:00 12/01/24 09:57 Sevelamer Carbonate 800 Mg Tablet PO 12/30/24 11:59 Not Given TIDWM GOLDEN Vitamin B Complex/Vit C/Folic Acid 1 tab 11/28/24 15:15 12/01/24 09:58 Vit B12/Vit C/Fa (Nephrovite) Tablet PO 12/28/24 15:14 Not Given QDAY GOLDEN Plan A 64-year-old wheelchair-bound female with past medical history of diabetes mellitus, hypertension, CAD s/p PCI, CHF, rheumatoid arthritis, COPD on 2 L oxygen at home ESRD on HD (M/W/F) presented to the hospital with chief complaints of pain and swelling in her vulvar area since 1week and admitted in the hospital for vulvar abscess # Vulvar abscess Likely progressed from folliculitis -Patient had a history of insulin-dependent diabetes mellitus -Initially developed as a small swelling for which she was prescribed cephalexin on outpatient basis -Continue to progress despite medication and associated with severe pain. Denies fever -On examination, entire vulvar area is indurated, mildly edematous, erythematous, with abscess of 4 x 3 cm with bloody discharge noted -Labs showed WBC 8.9, procalcitonin 0.38 -Ultrasound in the vulvar area showed soft tissue abscess of 9.8 x 1.[address] showed soft tissue abscess of 4.2 x 1.7 cm. Plan -Blood cultures showed no growth after 48 hours -Wound culture showed MRSA -MRSA nasal screen sent, still pending -Started on Zosyn 3.375 g IV twice daily [11/28- and stopped on 12/01 as patient tested positive for MRSA on nasal screen and wound culture -Started on vancomycin [11/28- -Started on clindamycin as per Dr. Mccain's recommendation -Dr. Santiago was consulted and recommended medical management as of now-abscess already drained -Referral to wound care done. 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 -Got multiple stents -Currently on Entresto, carvedilol, aspirin and clopidogrel -Does not appear to be fluid overloaded as of now Plan -Resumed her home medications -Will continue to monitor her blood pressures # ESRD on HD [M/W/F] -Patient is on HD since 2.5 years -Currently receiving dialysis through left sided tunneled dialysis catheter -Patient endorsed that she had a history of AV fistula placed for dialysis following which she developed steal syndrome -Likely due to multifactorial, diabetes mellitus, hypertension, contrast injury from PCI per patient -Last dialysis session was on 11/29/2024 Plan -Will continue to dialyze patient as per her routine schedule -Patient received HD on 12/01/2024 # Normocytic normochromic anemia -Hemoglobin at the time of admission is 11.4 -Likely anemia due to ESRD Plan -Erythropoietin injections during dialysis as needed # Hyperkalemia, # Hyperphosphatemia Due to underlying ESRD -As of 12/01/2024, potassium is 5.8 Plan -Resumed her home sevelamer -Patient underwent HD on 11/29/2024, 12/01/2024 -Will continue to monitor electrolytes and correct accordingly. # COPD/asthma on 2 L oxygen -Patient endorsed that she still continues to smoke 1 to 2 cigarettes in a day -Continues 2liter oxygen uses at home only during nights Hospital Maintenance: Dispo: MedSurg DVT ppx: Heparin GI ppx: Not needed Diet: Renal, low carb consistent IV lines: Peripheral Code status: Full code Patient plan of care was discussed with the attending physician, Dr. Rhiannon Taveras, PGY1 Attending Provider Attestation/Addendum Patient seen and examined with resident physician Dr. Russ. Note reviewed, agree with findings and recommendations. Patient currently seen on dialysis. Tolerating dialysis without any problems. Hemodialysis for 3 hours, 2K, ultrafiltration 2-3 L, Epogen 6000, no heparin ordered. Plan of care discussed with the dialysis nurse. Please see dialysis flowsheet for further details. Patient with vulvar abscess. On antibiotics. MRSA positive. Continue with clinda and Vanco. Significant Vulvar erythema. Hold off on discharge for now.
[2024-12-01] MEDS: HEPARIN SOD INJ 1000 UNIT/ML VIAL 10 ML 3900 UNIT INDWELLCAT (11:30)
--- NOTE | 2024-12-01 11:40 | PC.NURSE ---
pt. received back from Dialysis vitakls signs 125/76 HR 86, Pt. complaining of weakness and resting comfortably. will continue to monitor
[2024-12-01] MEDS: CLOPIDOGREL BISULFATE 75 MG TABLET PO (12:03)
[2024-12-01] MEDS: DULoxetine HCL 20 MG CAPSULE PO (12:03)
--- NOTE | 2024-12-01 12:04 | PC.SS ---
Follow up note: Pt will have dialysis today. Pt has O2 at home. Pt will return home upon dc.
[2024-12-01] MEDS: PREGABALIN 50 MG CAPSULE 100 MG PO ×2 (12:13→21:05)
[2024-12-01] MEDS: SEVELAMER CARBONATE 800 MG TABLET 2400 MG PO ×2 (12:54→17:17)
--- NOTE | 2024-12-01 17:20 | PC.NURSE ---
pharmacy stated they delivered the e poeitin medication to the nicolasa RN in Dialysis. Per Cesar he confirmed she gave the medicatioin. Per nicolasa conversation with Cesar she will come and fix on Wednesday that she admin the med.
[2024-12-01] MEDS: carVEDILOL 12.5 MG TABLET PO (21:05)
[2024-12-01] MEDS: HYDROcodone/APAP 5/325 TABLET 1 TAB PO (21:05)
[2024-12-01] MEDS: ATORVASTATIN CALCIUM 20 MG TABLET PO (21:06)
[2024-12-01] MEDS: SACUBITRIL 24 MG/VALSARTAN 26 MG TABLET 4 TAB PO (21:08)
[2024-12-01] MEDS: LACTULOSE SYRUP 20 GM/30 ML UDC PO (21:35)
[2024-12-02] VITALS (11 sets, daily range): BP systolic 96–141; BP diastolic 48–69; PULSE 67–80; RESP 16–18; TEMP 36.1–36.5; O2SAT 94–100
[2024-12-02] MEDS: MIDODRINE 5 MG TABLET PO (01:38)
[2024-12-02] MEDS: CLINDAMYCIN 900MG IVPB 900 MG in PRE-MIXED 1 BAG 50 MG IV ×3 (05:27→22:27)
[2024-12-02] MEDS: HEPARIN SOD INJ 5000 UNIT/ML VIAL SC ×3 (05:27→22:21)
[2024-12-02 06:26] LABS: Basophils # (Auto) 0.1 Thou/mm3 (0.0-0.2); Basophils % (Auto) 1 % (0-2.5); Eosinophils # (Auto) 0.2 Thou/mm3 (0.0-0.5); Eosinophils % (Auto) 2 % (0-10); Hematocrit 34.2 % (36.0-46.0); Hemoglobin 10.6 g/dL (12.0-16.0); Immature Granulocytes % (Auto) 3 % (0-0); Immature Granulocytes Auto 0.23 Thou/mm3 (0.00-0.00); Lymphocytes # (Auto) 2.2 Thou/mm3 (1.0-4.8); Lymphocytes % (Auto) 28 % (10-50); Mean Corpuscular Hemoglobin 30.3 pg (25.0-35.0); Mean Corpuscular Volume 98 fL (80-100); Monocytes # (Auto) 0.7 Thou/mm3 (0.0-0.8); Monocytes % (Auto) 9 % (0-12); Neutrophils # (Auto) 4.7 Thou/mm3 (1.8-7.7); Neutrophils % (Auto) 58 % (37-80); Nucleated Red Blood Cell # 0.07 Thou/mm3 (0.00-0.00); Nucleated Red Blood Cell % 1 /100 WBC (0); Platelet Count 235 Thou/mm3 (140-440); RDW Standard Deviation 49.8 fL (36.4-46.3); White Blood Count 8.1 Thou/mm3 (3.6-11.0)
[2024-12-02 06:43] LABS: Alanine Aminotransferase 20 U/L (10-49); Albumin, Serum 3.7 gm/dL (3.4-4.8); Albumin/Globulin Ratio 1.5 (1.2-2.2); Alkaline Phosphatase 120 U/L (46-116); Anion Gap 7 (7-16); Aspartate Amino Transferase 17 U/L (0-34); BUN/Creatinine Ratio 7 Ratio (12-20); Bilirubin,Total < 0.2 mg/dL (0.3-1.2); Blood Urea Nitrogen 44 mg/dL (9-23); Calcium 8.9 mg/dL (8.3-10.6); Calcium (Corrected) 9.1 mg/dL (8.5-10.1); Carbon Dioxide 31.3 mMol/L (20.0-31.0); Chloride 97 mMol/L (98-107); Creatinine (Component) 5.9 mg/dL (0.6-1.3); Estimated Creatinine Clearance 12.3 mL/min (>60); Globulin 2.5 gm/dL (2.3-3.5); Glucose 120 mg/dL (74-106); Osmolality,Calculated 282 (275-295); Potassium 5.1 mMol/L (3.4-5.1); Sodium 135 mMol/L (136-145); Total Protein 6.2 gm/dL (5.7-8.2); Vancomycin,Random 14.6 mcg/mL; eGFR 8 See Note
[2024-12-02] MEDS: SEVELAMER CARBONATE 800 MG TABLET 2400 MG PO ×3 (08:34→16:41)
[2024-12-02] MEDS: SACUBITRIL 24 MG/VALSARTAN 26 MG TABLET 4 TAB PO ×2 (08:34→20:29)
[2024-12-02] MEDS: ASPIRIN EC 81 MG TABEC PO (08:35)
[2024-12-02] MEDS: PREGABALIN 50 MG CAPSULE 100 MG PO ×2 (08:35→20:29)
[2024-12-02] MEDS: CLOPIDOGREL BISULFATE 75 MG TABLET PO (08:35)
[2024-12-02] MEDS: VIT B12/Vit C/FA (Nephrovite) TABLET 1 TAB PO (08:35)
[2024-12-02] MEDS: LACTULOSE SYRUP 20 GM/30 ML UDC PO (08:35)
[2024-12-02] MEDS: carVEDILOL 12.5 MG TABLET PO (08:36)
[2024-12-02] MEDS: DULoxetine HCL 20 MG CAPSULE PO (09:41)
[2024-12-02] MEDS: VANCOMYCIN/NS 500 MG IVPB 100 ML 120 MG IV (11:09)
--- NOTE | 2024-12-02 11:27 | PD.NEPHPROG ---
Documentation for date of: 12/02/24 Subjective Subjective Interval history: Ms. Kirkland is a 64-year-old wheelchair-bound female with past medical history of diabetes mellitus, hypertension, morbid obesity, diabetic neuropathy, CAD s/p PCI, CHF, rheumatoid arthritis, COPD on 2 L oxygen at home ESRD on HD (M/W/F) presented to the hospital with chief complaints of pain and swelling in her vulvar area since 1week. Patient was apparently normal 2weeks ago, during which she developed neftali infection under her breast and axillary folds for which she is treated with topical antifungals. 1week ago, patient initially developed a small swelling in the vulvar area which she thought to be a ingrown hair and later got antibiotics from Dr. Jurado but despite that the swelling seems to be progressively worsening since then. Denies fever, trauma. Endorses compliance with her medications. Denies any trauma to the area, denies itching, vaginal discharge. Endorses that her last dialysis session was done on the day before admission. 12/02/2024 patient currently seen in medical floor. Family visiting. Currently on MRSA precautions. Denies any chest pain, shortness of breath. Labs and medications reviewed. Will vulvar erythema slightly better. Review of Systems Review of Systems Narrative Review of Systems: CONSTITUTIONAL: Patient denies any fever, chills. HEENT: Denies any visual disturbances or hearing problems. CARDIOVASCULAR: Patient denies any chest pain, shortness of breath, swelling in the lower extremities. PULMONARY: Patient denies any shortness of breath, cough. GASTROINTESTINAL: Patient denies any abdominal pain, constipation, nausea, vomiting, diarrhea. GENITOURINARY: Patient denies any urinary symptoms of burning or frequency or hematuria, denies any form in the urine. SKIN: Vulvar erythema//edema ++. MUSCULOSKELETAL: Positive gait imbalance NEUROLOGICAL: Denies any neurological problems of strokes, seizures or confusion. Denies any memory problems. PSYCHIATRIC: + depression or anxiety. LYMPHATICS : No lymphadenopathy Exam Vital Signs Temp Pulse Resp BP Pulse Ox O2 Del Method O2 Flow Rate 36.5 C 72 18 137/69 H 94 L Room Air 3 12/02/24 08:00 12/02/24 08:36 12/02/24 08:00 12/02/24 08:36 12/02/24 08:00 12/02/24 08:00 12/02/24 07:15 Narrative Exam GENERAL APPEARANCE: Patient seems to be comfortable, adequately hydrated and nourished. HEENT: EOMI, PERRLA NECK: Neck supple, no JVD or bruit CARDIOVASCULAR: Heart regular, no murmurs LUNGS/CHEST: Chest clear to auscultation. No rales, rhonchi, wheezing ABDOMEN: Soft, nontender, nondistended. No masses. Normal bowel sounds. EXTREMITIES: No edema, clubbing or cyanosis. SKIN: Vulvar cellulitis/abscess . IJ dialysis catheter MUSCULOSKELETAL: In bed NEUROLOGICAL : No neurological deficits Objective Labs 12/03/24 05:13 12/03/24 05:13 Labs: Laboratory Results - last 24 hr 12/02/24 05:01 WBC 8.1 RBC 3.50 L Hgb 10.6 L Hct 34.2 L MCV 98 MCH 30.3 MCHC 31.0 RDW Std Deviation 49.8 H Plt Count 235 Neut % (Auto) 58 Lymph % (Auto) 28 [place] % (Auto) 9 Eos % (Auto) 2 Baso % (Auto) 1 Neut # (Auto) 4.7 Lymph # (Auto) 2.2 [place] # (Auto) 0.7 Eos # (Auto) 0.2 Baso # (Auto) 0.1 Immature Gran # (Auto) 0.23 H Absolute Nucleated RBC 0.07 H Immature Gran % 3 H Nucleated RBC % 1 H Sodium 135 L Potassium 5.1 D Chloride 97 L Carbon Dioxide 31.3 H Anion Gap 7 BUN 44 H Creatinine 5.9 H* D Estim Creat Clear Calc 12.3 L eGFR 8 L* BUN/Creatinine Ratio 7 L Glucose 120 H Calculated Osmolality 282 Calcium 8.9 Corrected Calcium 9.1 Total Bilirubin < 0.2 L AST 17 ALT 20 Alkaline Phosphatase 120 H Total Protein 6.2 Albumin 3.7 Globulin 2.5 Albumin/Globulin Ratio 1.5 Random Vancomycin 14.6 Assessment & Plan Additional Assessment & Plan Additional Plan: Ms. 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 Cultures came back positive for MRSA. Continue renally-dosed cefepime, in the setting of severe neutropenia #ESRD on HD (MWF) Will continue with hemodialysis per normal schedule, with midodrine on HD days Continue Nephro-Stephanie and sevelamer; Epogen with HD Avoid nephrotoxic agents; renally dose medications when possible; strict I's and O's #Rheumatoid arthritis Patient had side effects from methotrexate. 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 1500cc fluid restriction CODE STATUS: Full code
[2024-12-02] MEDS: HYDROcodone/APAP 5/325 TABLET 1 TAB PO ×2 (16:42→22:53)
[2024-12-02] MEDS: INSULIN LISPRO (AdmeLOG) 1 UNIT/0.01 ML UNIT SC (17:13)
[2024-12-02] MEDS: ATORVASTATIN CALCIUM 20 MG TABLET PO (20:29)
[2024-12-03] VITALS (10 sets, daily range): BP systolic 109–152; BP diastolic 45–73; PULSE 64–80; RESP 16–18; TEMP 36–36.8; O2SAT 95–100
[2024-12-03] MEDS: HEPARIN SOD INJ 5000 UNIT/ML VIAL SC ×3 (05:49→22:02)
[2024-12-03] MEDS: CLINDAMYCIN 900MG IVPB 900 MG in PRE-MIXED 1 BAG 50 MG IV ×3 (05:49→22:01)
[2024-12-03 06:15] LABS: Basophils # (Auto) 0.1 Thou/mm3 (0.0-0.2); Basophils % (Auto) 1 % (0-2.5); Eosinophils # (Auto) 0.2 Thou/mm3 (0.0-0.5); Eosinophils % (Auto) 2 % (0-10); Hematocrit 33.4 % (36.0-46.0); Hemoglobin 10.5 g/dL (12.0-16.0); Immature Granulocytes % (Auto) 5 % (0-0); Lymphocytes # (Auto) 2.2 Thou/mm3 (1.0-4.8); Lymphocytes % (Auto) 25 % (10-50); Mean Corpuscular HGB Conc 31.4 g/dl (31.0-37.0); Mean Corpuscular Hemoglobin 30.1 pg (25.0-35.0); Mean Corpuscular Volume 96 fL (80-100); Monocytes # (Auto) 0.8 Thou/mm3 (0.0-0.8); Monocytes % (Auto) 9 % (0-12); Neutrophils # (Auto) 5.1 Thou/mm3 (1.8-7.7); Neutrophils % (Auto) 58 % (37-80); Nucleated Red Blood Cell # 0.06 Thou/mm3 (0.00-0.00); Nucleated Red Blood Cell % 1 /100 WBC (0); Platelet Count 233 Thou/mm3 (140-440); RDW Standard Deviation 48.2 fL (36.4-46.3); Red Blood Count 3.49 Miln/mm3 (4.00-5.20); White Blood Count 8.8 Thou/mm3 (3.6-11.0)
[2024-12-03 06:24] LABS: Alanine Aminotransferase 24 U/L (10-49); Albumin, Serum 3.6 gm/dL (3.4-4.8); Albumin/Globulin Ratio 1.4 (1.2-2.2); Alkaline Phosphatase 140 U/L (46-116); Anion Gap 6 (7-16); Aspartate Amino Transferase 18 U/L (0-34); BUN/Creatinine Ratio 9 Ratio (12-20); Bilirubin,Total < 0.2 mg/dL (0.3-1.2); Blood Urea Nitrogen 62 mg/dL (9-23); Calcium 8.3 mg/dL (8.3-10.6); Calcium (Corrected) 8.6 mg/dL (8.5-10.1); Carbon Dioxide 30.2 mMol/L (20.0-31.0); Chloride 98 mMol/L (98-107); Estimated Creatinine Clearance 10.4 mL/min (>60); Globulin 2.5 gm/dL (2.3-3.5); Glucose 102 mg/dL (74-106); Osmolality,Calculated 285 (275-295); Potassium 5.6 mMol/L (3.4-5.1); Sodium 134 mMol/L (136-145); Total Protein 6.1 gm/dL (5.7-8.2); Vancomycin,Random 19.6 mcg/mL; eGFR 6 See Note
[2024-12-03] MEDS: carVEDILOL 12.5 MG TABLET PO ×2 (08:27→17:15)
[2024-12-03] MEDS: SEVELAMER CARBONATE 800 MG TABLET 2400 MG PO ×3 (08:27→17:14)
[2024-12-03] MEDS: PREGABALIN 50 MG CAPSULE 100 MG PO ×2 (08:27→20:41)
[2024-12-03] MEDS: LACTULOSE SYRUP 20 GM/30 ML UDC PO (08:27)
[2024-12-03] MEDS: ASPIRIN EC 81 MG TABEC PO (08:28)
[2024-12-03] MEDS: CLOPIDOGREL BISULFATE 75 MG TABLET PO (08:28)
[2024-12-03] MEDS: DULoxetine HCL 20 MG CAPSULE PO (08:28)
[2024-12-03] MEDS: SACUBITRIL 24 MG/VALSARTAN 26 MG TABLET 4 TAB PO (08:28)
[2024-12-03] MEDS: VIT B12/Vit C/FA (Nephrovite) TABLET 1 TAB PO (08:32)
[2024-12-03] MEDS: SOD POLYSTYRENE SULFON SUSP 15 GM/60 ML BTL 30 GM PO (12:01)
--- NOTE | 2024-12-03 12:49 | ESPR_ITS ---
Documentation for date of: 12/03/24 Subjective Subjective Interval history: Patient was seen and examined at the bedside No acute overnight events. Denies any other complaints. Vitals are stable. On physical examination, the vulvar abscess site seems to be healing-no discharge noted with fresh granulation tissue Labs showed sodium 134, potassium 5.6 Patient was noted to have high potassium levels despite diuresis, likely due to Entresto -dose was adjusted 1 dose of Kayexalate was given Planning to discharge tomorrow once the dialysis session is done Exam Vital Signs Temp Pulse Resp BP Pulse Ox O2 Del Method O2 Flow Rate 97.1 F 73 17 139/60 H 100 Room Air 3 12/03/24 08:00 12/03/24 10:24 12/03/24 10:24 12/03/24 08:27 12/03/24 10:24 12/03/24 08:00 12/03/24 10:24 Narrative Exam General: Awake. Obese. HEENT: Normocephalic, atraumatic, mucous membranes moist. Heart: Regular rate and rhythm, no murmurs. Lungs: Clear to auscultation with no wheezing or crackles. Abdomen: Soft, nondistended, nontender, positive bowel sounds. ?No guarding or rebound tenderness. Vulvar abscess seems to be resolving, no discharge found Neurologic: Alert and oriented x3, no gross neurological deficit, and patient able to move all 4 extremities. Extremities: No edema. Skin: No rash or ecchymoses. Objective Labs 12/04/24 05:35 12/04/24 05:35 Labs: Laboratory Results - last 24 hr 12/03/24 05:13 WBC 8.8 RBC 3.49 L Hgb 10.5 L Hct 33.4 L MCV 96 MCH 30.1 MCHC 31.4 RDW Std Deviation 48.2 H Plt Count 233 Neut % (Auto) 58 Lymph % (Auto) 25 [place] % (Auto) 9 Eos % (Auto) 2 Baso % (Auto) 1 Neut # (Auto) 5.1 Lymph # (Auto) 2.2 [place] # (Auto) 0.8 Eos # (Auto) 0.2 Baso # (Auto) 0.1 Immature Gran # (Auto) 0.40 H Absolute Nucleated RBC 0.06 H Immature Gran % 5 H Nucleated RBC % 1 H Sodium 134 L Potassium 5.6 H D Chloride 98 Carbon Dioxide 30.2 Anion Gap 6 L BUN 62 H Creatinine 7.0 H* D Estim Creat Clear Calc 10.4 L eGFR 6 L* BUN/Creatinine Ratio 9 L Glucose 102 Calculated Osmolality 285 Calcium 8.3 Corrected Calcium 8.6 Total Bilirubin < 0.2 L AST 18 ALT 24 Alkaline Phosphatase 140 H D Total Protein 6.1 Albumin 3.6 Globulin 2.5 Albumin/Globulin Ratio 1.4 Random Vancomycin 19.6 Quality Measures Quality Measures none Assessment & Plan Assessment Current Active Medications: Generic Name Dose Route Start Last Admin Trade Name Freq PRN Reason Stop Dose Admin Acetaminophen 650 mg 11/28/24 10:33 11/28/24 13:20 Acetaminophen 325 Mg Tablet PO 12/28/24 10:32 650 mg Q6H PRN Administration Fever >100.5 or mild pain 1-3 Hydrocodone Bitart/Acetaminophen 1 tab 12/01/24 20:39 12/02/24 22:53 Hydrocodone/Apap 5/325 Tablet PO 12/06/24 20:38 1 tab Q6HR PRN Administration PAIN SCALE 4-10(Mod-Sev Albuterol/Ipratropium 3 ml 11/28/24 10:33 Albuterol/Ipratropium (Duoneb) Rt Maida 3 Ml Nebu INH 12/28/24 12:59 Q6HRRT PRN wheeze Aspirin 81 mg 11/28/24 15:15 12/03/24 08:28 Aspirin Ec 81 Mg Tabec PO 12/28/24 15:14 81 mg QDAY GOLDEN Administration Atorvastatin Calcium 20 mg 11/28/24 21:00 12/02/24 20:29 Atorvastatin Calcium 20 Mg Tablet PO 12/28/24 20:59 20 mg HS GOLDEN Administration Bisacodyl 5 mg 11/29/24 11:45 11/30/24 10:17 Bisacodyl 5 Mg Tabec PO 12/29/24 11:44 5 mg QDAY PRN Administration CONSTIPATION Protocol Bisacodyl 10 mg 11/30/24 10:00 11/30/24 10:17 Bisacodyl 10 Mg Supp [place] 12/30/24 09:59 10 mg QDAY PRN Administration CONSTIPATION Protocol Carvedilol 12.5 mg 12/02/24 17:30 12/03/24 08:27 Carvedilol 12.5 Mg Tablet PO 12/28/24 20:59 12.5 mg BIDWM GOLDEN Administration Clopidogrel Bisulfate 75 mg 11/28/24 15:15 12/03/24 08:28 Clopidogrel Bisulfate 75 Mg Tablet PO 12/28/24 15:14 75 mg QDAY GOLDEN Administration Dextrose 25 ml 11/28/24 09:02 Dextrose 50%-Water Inj 50 Ml Syringe IV 12/28/24 09:01 Q15MIN PRN BG 50-70 responsive npo pt Dextrose 50 ml 11/28/24 09:02 Dextrose 50%-Water Inj 50 Ml Syringe IV 12/28/24 09:01 Q15MIN PRN BG <50 OR BG <70 & pt unresponsive Duloxetine HCl 20 mg 11/28/24 15:15 12/03/24 08:28 Duloxetine Hcl 20 Mg Capsule PO 12/28/24 15:14 20 mg QDAY GOLDEN Administration Glucagon 1 mg 11/28/24 09:02 Glucagon Inj 1 Mg Vial IM Q15MIN PRN BG <70, and no IV access Heparin Sodium (Porcine) 5,000 unit 11/28/24 14:00 12/03/24 05:49 Heparin Sod Inj 5000 Unit/Ml Vial SC 12/12/24 13:59 5,000 unit Q8HR GOLDEN Administration Heparin Sodium (Porcine) 3,900 unit 11/29/24 08:58 12/01/24 11:30 Heparin Sod Inj 1000 Unit/Ml Vial 10 Ml INDWELLCAT 12/13/24 08:57 3,900 unit X1 PRN Administration DIALYSIS Clindamycin Phosphate 900 mg/ 50 mls @ 50 mls/hr 11/28/24 14:00 12/03/24 05:49 IV Miscellaneous Supplies IV 12/05/24 13:59 50 mls/hr Q8HR GOLDEN Administration Insulin Human Lispro 0 unit 11/28/24 11:30 12/03/24 12:06 Insulin Lispro (Admelog) 1 Unit/0.01 Ml Unit SC 12/28/24 11:29 Not Given ACHS GOLDEN Protocol Lactulose 20 gm 12/01/24 21:00 12/03/24 08:27 Lactulose Syrup 20 Gm/30 Ml Udc PO 12/31/24 20:59 20 gm DAILY GOLDEN Administration Protocol Magnesium Hydroxide 30 ml 11/28/24 10:33 11/29/24 19:18 Milk Of Magnesia Susp 30 Ml Udc PO 12/28/24 10:32 30 ml QDAY PRN Administration CONSTIPATION Protocol Midodrine 5 mg 11/28/24 15:10 12/02/24 01:38 Midodrine 5 Mg Tablet PO 12/28/24 20:59 5 mg BID PRN Administration sbp<100 Ondansetron HCl 4 mg 11/28/24 10:33 Ondansetron Inj 2 Mg/Ml Inj 2 Ml IV 12/28/24 10:32 Q6H PRN NAUSEA OR VOMITING Protocol Pharmacy Consult 1 each 11/28/24 09:15 Vancomycin Pharmacy To Dose 1 Each Each IV 12/28/24 09:14 QDAY PRN PROTOCOL Pregabalin 100 mg 11/28/24 21:00 12/03/24 08:27 Pregabalin 50 Mg Capsule PO 12/28/24 20:59 100 mg BID GOLDEN Administration Sacubitril/Valsartan 1 tab 12/03/24 21:00 Sacubitril 24 Mg/Valsartan 26 Mg Tablet PO 01/02/25 20:59 BID GOLDEN Sevelamer Carbonate 2,400 mg 11/30/24 12:00 12/03/24 12:01 Sevelamer Carbonate 800 Mg Tablet PO 12/30/24 11:59 2,400 mg TIDWM GOLDEN Administration Vitamin B Complex/Vit C/Folic Acid 1 tab 11/28/24 15:15 12/03/24 08:32 Vit B12/Vit C/Fa (Nephrovite) Tablet PO 12/28/24 15:14 1 tab QDAY GOLDEN Administration Plan A 64-year-old wheelchair-bound female with past medical history of diabetes mellitus, hypertension, CAD s/p PCI, CHF, rheumatoid arthritis, COPD on 2 L oxygen at home ESRD on HD (M/W/F) presented to the hospital with chief complaints of pain and swelling in her vulvar area since 1week and admitted in the hospital for vulvar abscess # Vulvar abscess, MRSA positive Likely progressed from folliculitis -Patient had a history of insulin-dependent diabetes mellitus -Initially developed as a small swelling for which she was prescribed cephalexin on outpatient basis -Continue to progress despite medication and associated with severe pain. Denies fever -On examination, entire vulvar area is indurated, mildly edematous, erythematous, with abscess of 4 x 3 cm with bloody discharge noted -Labs showed WBC 8.9, procalcitonin 0.38 -Ultrasound in the vulvar area showed soft tissue abscess of 9.8 x 1.[address] showed soft tissue abscess of 4.2 x 1.7 cm. Plan -Blood cultures showed no growth after 48 hours -Wound culture showed MRSA -MRSA nasal screen sent, showed MRSA -Started on Zosyn 3.375 g IV twice daily [11/28- and stopped on 12/01 as patient tested positive for MRSA on nasal screen and wound culture -Started on vancomycin [11/28- -Started on clindamycin as per Dr. Mccain's recommendation -Dr. Santiago was consulted and recommended medical management as of now-abscess already drained -Referral to wound care done. 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 -Got multiple stents -Currently on Entresto, carvedilol, aspirin and clopidogrel -Does not appear to be fluid overloaded as of now Plan -Resumed her home medications -Will continue to monitor her blood pressures # ESRD on HD [M/W/F] -Patient is on HD since 2.5 years -Currently receiving dialysis through left sided tunneled dialysis catheter -Patient endorsed that she had a history of AV fistula placed for dialysis following which she developed steal syndrome -Likely due to multifactorial, diabetes mellitus, hypertension, contrast injury from PCI per patient -Last dialysis session was on 12/01/2024 Plan -Will continue to dialyze patient as per her routine schedule -Patient received HD on 12/01/2024 # Normocytic normochromic anemia -Hemoglobin at the time of admission is 11.4 -Likely anemia due to ESRD Plan -Erythropoietin injections during dialysis as needed # Hyperkalemia, # Hyperphosphatemia Due to underlying ESRD -As of 12/03/2024, potassium is 5.6 Plan -Resumed her home sevelamer -Patient underwent HD on 11/29/2024, 12/01/2024 -Adjusted her Entresto dose, which could be causing the hyperkalemia -1 dose of Kayexalate was given -Will continue to monitor electrolytes and correct accordingly. # COPD/asthma on 2 L oxygen -Patient endorsed that she still continues to smoke 1 to 2 cigarettes in a day -Continues 2liter oxygen uses at home only during nights Hospital Maintenance: Dispo: MedSurg DVT ppx: Heparin GI ppx: Not needed Diet: Renal, low carb consistent IV lines: Peripheral Code status: Full code Patient plan of care was discussed with the attending physician, Dr. Rhiannon Taveras, PGY1 Attending Provider Attestation/Addendum Patient seen and examined with resident physician Dr. Russ. Note reviewed, agree with findings and recommendations. Next dialysis scheduled for tomorrow. Postdialysis can be discharged home with home health and wound care. Patient declines to go to rehab.
[2024-12-03] MEDS: ATORVASTATIN CALCIUM 20 MG TABLET PO (20:41)
[2024-12-03] MEDS: SACUBITRIL 24 MG/VALSARTAN 26 MG TABLET 1 TAB PO (20:41)
[2024-12-04] VITALS (27 sets, daily range): BP systolic 87–157; BP diastolic 38–68; PULSE 67–97; RESP 17–18; TEMP 36.2–36.7; O2SAT 95–98
[2024-12-04] MEDS: HEPARIN SOD INJ 5000 UNIT/ML VIAL SC ×2 (05:15→13:32)
[2024-12-04] MEDS: CLINDAMYCIN 900MG IVPB 900 MG in PRE-MIXED 1 BAG 50 MG IV ×2 (05:15→13:32)
[2024-12-04 06:19] LABS: Basophils # (Auto) 0.1 Thou/mm3 (0.0-0.2); Basophils % (Auto) 1 % (0-2.5); Eosinophils # (Auto) 0.2 Thou/mm3 (0.0-0.5); Eosinophils % (Auto) 2 % (0-10); Hematocrit 33.4 % (36.0-46.0); Hemoglobin 10.6 g/dL (12.0-16.0); Immature Granulocytes % (Auto) 4 % (0-0); Immature Granulocytes Auto 0.32 Thou/mm3 (0.00-0.00); Lymphocytes % (Auto) 22 % (10-50); Mean Corpuscular HGB Conc 31.7 g/dl (31.0-37.0); Mean Corpuscular Hemoglobin 30.5 pg (25.0-35.0); Mean Corpuscular Volume 96 fL (80-100); Monocytes # (Auto) 0.6 Thou/mm3 (0.0-0.8); Monocytes % (Auto) 7 % (0-12); Neutrophils % (Auto) 65 % (37-80); Nucleated Red Blood Cell # 0.03 Thou/mm3 (0.00-0.00); Nucleated Red Blood Cell % 0 /100 WBC (0); Platelet Count 253 Thou/mm3 (140-440); RDW Standard Deviation 48.7 fL (36.4-46.3); Red Blood Count 3.48 Miln/mm3 (4.00-5.20); White Blood Count 9.2 Thou/mm3 (3.6-11.0)
[2024-12-04] MEDS: HYDROcodone/APAP 5/325 TABLET 1 TAB PO ×2 (06:33→14:23)
[2024-12-04 06:47] LABS: Alanine Aminotransferase 23 U/L (10-49); Albumin, Serum 3.4 gm/dL (3.4-4.8); Albumin/Globulin Ratio 1.3 (1.2-2.2); Alkaline Phosphatase 135 U/L (46-116); Anion Gap 7 (7-16); Aspartate Amino Transferase 18 U/L (0-34); BUN/Creatinine Ratio 9 Ratio (12-20); Bilirubin,Total < 0.2 mg/dL (0.3-1.2); Blood Urea Nitrogen 78 mg/dL (9-23); Calcium 8.1 mg/dL (8.3-10.6); Calcium (Corrected) 8.6 mg/dL (8.5-10.1); Chloride 97 mMol/L (98-107); Creatinine (Component) 8.3 mg/dL (0.6-1.3); Estimated Creatinine Clearance 8.8 mL/min (>60); Globulin 2.7 gm/dL (2.3-3.5); Glucose 92 mg/dL (74-106); Osmolality,Calculated 289 (275-295); Sodium 133 mMol/L (136-145); Total Protein 6.1 gm/dL (5.7-8.2); Vancomycin,Random 18.7 mcg/mL; eGFR 5 See Note
[2024-12-04 07:04] LABS: Potassium 6.1 mMol/L (3.4-5.1)
[2024-12-04] MEDS: MIDODRINE 5 MG TABLET PO (08:25)
[2024-12-04] MEDS: SEVELAMER CARBONATE 800 MG TABLET 2400 MG PO ×2 (08:25→12:28)
[2024-12-04] MEDS: EPOETIN ALFA-EPBX INJ 10,000 UNIT/ML VIAL (ESRD) 10000 UNIT SC (09:13)
[2024-12-04] MEDS: VIT B12/Vit C/FA (Nephrovite) TABLET 1 TAB PO (12:28)
[2024-12-04] MEDS: LACTULOSE SYRUP 20 GM/30 ML UDC PO (12:28)
[2024-12-04] MEDS: ASPIRIN EC 81 MG TABEC PO (12:29)
[2024-12-04] MEDS: CLOPIDOGREL BISULFATE 75 MG TABLET PO (12:29)
[2024-12-04] MEDS: DULoxetine HCL 20 MG CAPSULE PO (12:34)
--- NOTE | 2024-12-04 13:33 | PD.RESPRO ---
Documentation for date of: 12/04/24 Exam Vital Signs Temp Pulse Resp BP Pulse Ox O2 Del Method O2 Flow Rate 97.1 F 71 17 90/38 L 98 Nasal Cannula 2 12/04/24 11:30 12/04/24 11:56 12/04/24 11:30 12/04/24 11:56 12/04/24 11:30 12/04/24 07:54 12/04/24 11:30 Objective Labs 12/04/24 05:35 12/04/24 05:35 Labs: Laboratory Results - last 24 hr 12/04/24 05:35 WBC 9.2 RBC 3.48 L Hgb 10.6 L Hct 33.4 L MCV 96 MCH 30.5 MCHC 31.7 RDW Std Deviation 48.7 H Plt Count 253 Neut % (Auto) 65 Lymph % (Auto) 22 [place] % (Auto) 7 Eos % (Auto) 2 Baso % (Auto) 1 Neut # (Auto) 6.0 Lymph # (Auto) 2.0 [place] # (Auto) 0.6 Eos # (Auto) 0.2 Baso # (Auto) 0.1 Immature Gran # (Auto) 0.32 H Absolute Nucleated RBC 0.03 H Immature Gran % 4 H Nucleated RBC % 0 Sodium 133 L Potassium 6.1 H* D Chloride 97 L Carbon Dioxide 29.0 Anion Gap 7 BUN 78 H Creatinine 8.3 H* D Estim Creat Clear Calc 8.8 L eGFR 5 L* BUN/Creatinine Ratio 9 L Glucose 92 Calculated Osmolality 289 Calcium 8.1 L Corrected Calcium 8.6 Total Bilirubin < 0.2 L AST 18 ALT 23 Alkaline Phosphatase 135 H Total Protein 6.1 Albumin 3.4 Globulin 2.7 Albumin/Globulin Ratio 1.3 Random Vancomycin 18.7 Quality Measures Quality Measures none Assessment & Plan Assessment Current Active Medications: Generic Name Dose Route Start Last Admin Trade Name Freq PRN Reason Stop Dose Admin Acetaminophen 650 mg 11/28/24 10:33 11/28/24 13:20 Acetaminophen 325 Mg Tablet PO 12/28/24 10:32 650 mg Q6H PRN Administration Fever >100.5 or mild pain 1-3 Hydrocodone Bitart/Acetaminophen 1 tab 12/01/24 20:39 12/04/24 06:33 Hydrocodone/Apap 5/325 Tablet PO 12/06/24 20:38 1 tab Q6HR PRN Administration PAIN SCALE 4-10(Mod-Sev Albuterol/Ipratropium 3 ml 11/28/24 10:33 Albuterol/Ipratropium (Duoneb) Rt Maida 3 Ml Nebu INH 12/28/24 12:59 Q6HRRT PRN wheeze Aspirin 81 mg 11/28/24 15:15 12/04/24 12:29 Aspirin Ec 81 Mg Tabec PO 12/28/24 15:14 81 mg QDAY GOLDEN Administration Atorvastatin Calcium 20 mg 11/28/24 21:00 12/03/24 20:41 Atorvastatin Calcium 20 Mg Tablet PO 12/28/24 20:59 20 mg HS GOLDEN Administration Bisacodyl 5 mg 11/29/24 11:45 11/30/24 10:17 Bisacodyl 5 Mg Tabec PO 12/29/24 11:44 5 mg QDAY PRN Administration CONSTIPATION Protocol Bisacodyl 10 mg 11/30/24 10:00 11/30/24 10:17 Bisacodyl 10 Mg Supp [place] 12/30/24 09:59 10 mg QDAY PRN Administration CONSTIPATION Protocol Carvedilol 12.5 mg 12/02/24 17:30 12/04/24 11:56 Carvedilol 12.5 Mg Tablet PO 12/28/24 20:59 Not Given BIDWM GOLDEN Clopidogrel Bisulfate 75 mg 11/28/24 15:15 12/04/24 12:29 Clopidogrel Bisulfate 75 Mg Tablet PO 12/28/24 15:14 75 mg QDAY GOLDEN Administration Dextrose 25 ml 11/28/24 09:02 Dextrose 50%-Water Inj 50 Ml Syringe IV 12/28/24 09:01 Q15MIN PRN BG 50-70 responsive npo pt Dextrose 50 ml 11/28/24 09:02 Dextrose 50%-Water Inj 50 Ml Syringe IV 12/28/24 09:01 Q15MIN PRN BG <50 OR BG <70 & pt unresponsive Duloxetine HCl 20 mg 11/28/24 15:15 12/04/24 12:34 Duloxetine Hcl 20 Mg Capsule PO 12/28/24 15:14 20 mg QDAY GOLDEN Administration Glucagon 1 mg 11/28/24 09:02 Glucagon Inj 1 Mg Vial IM Q15MIN PRN BG <70, and no IV access Heparin Sodium (Porcine) 5,000 unit 11/28/24 14:00 12/04/24 13:32 Heparin Sod Inj 5000 Unit/Ml Vial SC 12/12/24 13:59 5,000 unit Q8HR GOLDEN Administration Heparin Sodium (Porcine) 3,900 unit 11/29/24 08:58 12/01/24 11:30 Heparin Sod Inj 1000 Unit/Ml Vial 10 Ml INDWELLCAT 12/13/24 08:57 3,900 unit X1 PRN Administration DIALYSIS Clindamycin Phosphate 900 mg/ 50 mls @ 50 mls/hr 11/28/24 14:00 12/04/24 13:32 IV Miscellaneous Supplies IV 12/05/24 13:59 50 mls/hr Q8HR GOLDEN Administration Insulin Human Lispro 0 unit 11/28/24 11:30 12/04/24 12:34 Insulin Lispro (Admelog) 1 Unit/0.01 Ml Unit SC 12/28/24 11:29 Not Given ACHS GOLDEN Protocol Lactulose 20 gm 12/01/24 21:00 12/04/24 12:28 Lactulose Syrup 20 Gm/30 Ml Udc PO 12/31/24 20:59 20 gm DAILY GOLDEN Administration Protocol Magnesium Hydroxide 30 ml 11/28/24 10:33 11/29/24 19:18 Milk Of Magnesia Susp 30 Ml Udc PO 12/28/24 10:32 30 ml QDAY PRN Administration CONSTIPATION Protocol Midodrine 5 mg 11/28/24 15:10 12/04/24 08:25 Midodrine 5 Mg Tablet PO 12/28/24 20:59 5 mg BID PRN Administration sbp<100 Ondansetron HCl 4 mg 11/28/24 10:33 Ondansetron Inj 2 Mg/Ml Inj 2 Ml IV 12/28/24 10:32 Q6H PRN NAUSEA OR VOMITING Protocol Pharmacy Consult 1 each 11/28/24 09:15 Vancomycin Pharmacy To Dose 1 Each Each IV 12/28/24 09:14 QDAY PRN PROTOCOL Sacubitril/Valsartan 1 tab 12/03/24 21:00 12/04/24 11:57 Sacubitril 24 Mg/Valsartan 26 Mg Tablet PO 01/02/25 20:59 Not Given BID GOLDEN Sevelamer Carbonate 2,400 mg 11/30/24 12:00 12/04/24 12:28 Sevelamer Carbonate 800 Mg Tablet PO 12/30/24 11:59 2,400 mg TIDWM GOLDEN Administration Vitamin B Complex/Vit C/Folic Acid 1 tab 11/28/24 15:15 12/04/24 12:28 Vit B12/Vit C/Fa (Nephrovite) Tablet PO 12/28/24 15:14 1 tab QDAY GOLDEN Administration
--- NOTE | 2024-12-04 13:35 | ESDS_ITS ---
Planned Discharge Date 12/04/24 DS: Providers Provider Date of admission: 11/28/24 08:18 Primary care physician: Physician No Primary/Family Admitting Provider: Jennifer Jurado MD Attending Provider on Admission: Jennifer Jurado MD Consults: 11/28/24 09:12 Consult to General Surgery Stat Comment: Vulvar abscess Consulting Provider: Aiden Santiago 11/28/24 15:25 Referral Wound Care Stat Comment: vulvar abscess 11/29/24 14:37 Referral OP Wound Healing Dept Routine Comment: Instructions: Full thickness abscess over mons pubis 11/29/24 14:38 Referral Nutritional Services Routine Comment: Wounds 11/30/24 08:56 Referral Physical Therapy Routine Comment: Physician Instructions: Attending Provider on DC: Jeb Taveras MD Discharging Provider: Jeb Taveras MD DS: Diagnosis Discharge Diagnosis (1) Abscess: Status: Acute (2) End-stage renal disease (ESRD): Status: Acute (3) ESRD on hemodialysis: Status: Acute (4) Morbid obesity: Status: Acute Problem List Completed Was Problem List Reviewed/Reconciled?: Yes Hospital Course Hospital Course Hospital course: Ms. Kirkland is a 64-year-old wheelchair-bound female with past medical history of diabetes mellitus, hypertension, morbid obesity, diabetic neuropathy, CAD s/p PCI, CHF, rheumatoid arthritis, COPD on 2 L oxygen at home ESRD on HD (M/W/F) presented to the hospital with chief complaints of pain and swelling in her vulvar area since 1week and Patient was admitted for vulvar abscess. Labs significant for Hb 11.4, WBC 8.9, platelets 235, sodium 137, potassium 5.7, chloride 103, bicarb 25.6, BUN 48, creatinine 5.4, phosphorus 5.5, magnesium 3.2, BNP 182, procalcitonin 0.38. Ultrasound in the vulvar area showed soft tissue abscess of 9.8 x 1.[address] showed soft tissue abscess of 4.2 x 1.7 cm. EKG showed normal sinus rhythm. MRSA nasal screen tested positive. Blood cultures tested positive for MRSA. Blood cultures came negative after 48 hours. Patient was treated with IV Zosyn, vancomycin and clindamycin. Dr Santiago was consulted and recommended no surgical interventions as the abscess was already drained and recommended to continue antibiotics. Patient underwent her routine dialysis sessions during the hospital stay. Patient was found to have recurrent hyperkalemic episodes despite dialysis sessions, adjusted her Entresto dosages. Patient was discharged to home with home health with the following medications and recommendations -Follow-up with PCP within 1 week of discharge. -Follow up at [facility], [address] [place] [address]. Call [phone] for appointment. -Recommended to take clindamycin 300 Mg p.o. twice daily for 10 days -Continue rest of the home medications -Recommended salt and fluid restriction. -Return to ED if symptoms persist or return Patient plan of care was discussed with the attending physician, Dr. Rhiannon Taveras, PGY1 Status at Discharge Cognitive/behavioral status at discharge: stable Functional status at discharge: wheelchair bound Overall status at discharge: patient is progressing back to baseline Time Spent with Patient Time attestation: Total time spent providing and/or coordinating discharge services: Time spent: Greater than 30 minutes Home Health Home Health Referral Orders: 12/04/24 12:20 Home Health Referral Routine Reason For Exam: vulvar abscess, wound Home-Bound The patient must either because of illness or injury, need the aid of supportive devices such as crutches, canes, wheelchairs, and walkers; the use of special transportation; or the assistance of another person in order to leave their place of residence; OR have a condition such that leaving his or her home is medically contraindicated. In addition, the patient also meets the following criteria: patient is normally unable to leave the home and leaving home requires considerable taxing effort. Addendum to Home Health Certification Practitioner's Certification: I certify that the patient has been under my care in the hospital and the care of attending physician (see below). We had a caxw-by-ewez encounter on (see date below). My clinical findings indicate that the patient is home bound per the above criteria and the Home Health Services noted in these orders are medically necessary. The primary reason for the ejjz-td-[id number] encounter is related to the fact that the patient requires home health services. Date Certifying Rhhy-at-Qmbe Physician Encounter: 12/04/24 Physician's Name who will Assume Oversight for Services: Jennifer Jurado [employer] GENERAL MANAGER - Community Resources: No PT to Evaluate: Yes PT to evaluate and provide a treatmnet plan to increase patient's mobility and strength. Wound Care: Yes Home Health RN - Wound Care Order: see current orders IV Therapy: No RN Safety Evaluation: Yes RN to evaluate and create a plan of care that will produce positive outcomes. Palliative Treatment: No Palliative treatment and evaluate the need for hospice. Home Health Aide - Personal Care: No Home Health Aide to assist with any ADL's. Exam Vital Signs Temp Pulse Resp BP Pulse Ox O2 Del Method O2 Flow Rate 97.1 F 71 17 90/38 L 98 Nasal Cannula 2 12/04/24 11:30 12/04/24 11:56 12/04/24 11:30 12/04/24 11:56 12/04/24 11:30 12/04/24 07:54 12/04/24 11:30 Narrative Exam General: Awake. Obese. HEENT: Normocephalic, atraumatic, mucous membranes moist. Heart: Regular rate and rhythm, no murmurs. Lungs: Clear to auscultation with no wheezing or crackles. Abdomen: Soft, nondistended, nontender, positive bowel sounds. ?No guarding or rebound tenderness. Vulvar abscess seems to be resolving, no discharge found Neurologic: Alert and oriented x3, no gross neurological deficit, and patient able to move all 4 extremities. Extremities: No edema. Skin: No rash or ecchymoses. Discharge Plan Plan Patient Disposition: Home w/HOME HEALTH Disposition Comment: Stable at signout. Care Plan Goals: 1) Follow up at [facility], [address] [place] [address]. Call [phone] for appointment. 2) Wound care to lower pelvis: Remove dressing and shower daily with antimicrobial soap. Wash hands and cleanse wound with normal saline. Pat dry with gauze. Wash hands again. Lightly moistened dry gauze with normal saline and pack wound. Cover with foam dressing. Change once a day an as needed for falling off. If active bleeding occurs, apply tight dressing and return to MD or ER. ? Notify primary doctor or return to Emergency Room if any of the following: ? Fever above 100.6? F. ? Increased pain ? Increase swelling ? Red streaks around your wound ? Drainage becomes foul smelling or changes color ? The wound is larger or deeper ? The wound looks dried out or dark ? Bleeding that does not stop with holding pressure Prescriptions/Referrals Prescriptions/Med Rec: New clindamycin HCl 300 mg capsule 300 mg PO BID Qty: 20 0RF Continued aspirin 81 mg Tablet,Delayed Release (Dr/Ec) 81 mg PO QDAY Qty: 0 nitroglycerin [Nitrostat] 0.4 mg Tablet, Sublingual 0.4 mg buccal PRN PRN (Reason: Chest Pain) Qty: 60 0RF (DME) Accu-Chek Guide test strips Strip Patient Comments: APPLY TO AFFECTED AREA TWICE A DAY DIRECTED Lori-Stephanie 0.8 mg tablet 1 tab PO QDAY Patient Comments: TAKE 1 TABLET BY MOUTH ONCE A DAY duloxetine 20 mg capsule,delayed release(DR/EC) 20 mg PO QDAY Patient Comments: TAKE 1 CAPSULE BY MOUTH EVERY DAY (DME) pen needle, diabetic [BD Ultra-Fine Micro Pen Needle] 32 gauge x 1/4 needle Patient Comments: INJECT SUBCUTANEOUSLY 3 TIMES A DAY sevelamer carbonate 800 mg tablet 2,400 mg PO TID Patient Comments: TAKE 3 TABLETS BY MOUTH 3 TIMES A DAY Mounjaro 5 mg/0.5 mL pen injector 5 mg SUBCUT QWEEK Patient Comments: INJECT 5MG SUBCUTANEOUSLY WEEKLY atorvastatin 20 mg tablet 20 mg PO QDAY Patient Comments: TAKE 1 TABLET BY MOUTH EVERY DAY carvedilol 12.5 mg tablet 12.5 mg PO BID Patient Comments: TAKE 1 TABLET BY MOUTH TWICE A DAY WITH FOOD FOR 30 DAYS hydrocodone-acetaminophen 5-325 mg tablet 1 tab PO DAILY Patient Comments: TAKE 1 TABLET BY MOUTH TWICE A DAY NEEDED midodrine 5 mg tablet 5 mg PO BID Patient Comments: TAKE 1 TABLET BY MOUTH TWICE A DAY ON DIALYSIS DAYS Rx Instructions: TAKE 1 TABLET BY MOUTH TWICE A DAY ON DIALYSIS DAYS clopidogrel [Plavix] 75 mg Tablet 75 mg PO QDAY loratadine 10 mg tablet 10 mg PO QDAY Patient Comments: TAKE 1 TABLET BY MOUTH EVERY DAY insulin aspart U-100 [Novolog FlexPen U-100 Insulin] 100 unit/mL (3 mL) ins ulin pen 5 unit SUBCUT TIDWM Patient Comments: INJECT 5 UNITS SUBCUTANEOUSLY 3 TIMES A DAY WITH EACH MEAL PER SLIDING SCALE pregabalin 100 mg capsule 100 mg PO BID Patient Comments: TAKE 1 CAPSULE BY MOUTH TWICE A DAY Entresto 97-103 mg tablet 1 tab PO BID Patient Comments: TAKE 1 TABLET BY MOUTH TWICE A DAY albuterol sulfate 90 mcg/actuation HFA aerosol inhaler 2 inh INH TID PRN (Reason: Shortness Of Breath Or Wheezing) Rx Instructions: Please provide a chamber Discontinued cephalexin 500 mg capsule 500 mg PO BID Qty: 10 0RF Referrals: No Primary/Family,Physician [Primary Care Provider] - Patient/Caregiver Discharge Instructions Discharge Activity: activity as tolerated Education Materials: Abscess Drainage, ED Abscess Antibiotic ... Print Language: Spanish Activity Restrictions/Additional Instructions: f/u with dr. jurado in 1-2 weeks IV vanco 1gm with HD- 2 weeks [facility]- wound care Stand Alone Forms: [employer] Award Info., Patient Portal Info Letter Discharge Order Discharge Orders: Discharge (Routine); Ordered 12/04/24 Ordered By: Jennifer Jurado Quality Discharge Quality Measures VTE prophylaxis MD Attestestation MD Attestation Patient seen and examined with resident physician Dr. Russ. Note reviewed, agree with findings and recommendations. Patient will be discharged on p.o. clinda and IV Vanco during dialysis for 2 weeks.
--- NOTE | 2024-12-05 12:27 | PC.CM ---
Patient had [employer] insurance. I faxed home health referral to [place].
--- NOTE | 2024-12-06 09:10 | PC.CC ---
Addendum entered by Cassidy Flower RN 12/06/24 12:11: SOC is 12/08/24 Original Note: Pt is booked with [facility], pending SOC.
== END 2024-12-04 16:09 | disposition home health service (06) | DRG 757 ==
LOC: SERX 11-28 07:00 → SERHOLD 11-28 08:38 → S3SX 11-28 09:29
PROVIDERS: Emergency Medicine; Admitting Provider Internal Medicine; Emergency Provider Emergency Medicine; Visit Provider Internal Medicine
DX: N76.4 Abscess of vulva (principal); N18.6 End stage renal disease; I50.22 Chronic systolic (congestive) heart failure; I13.2 Hypertensive heart and chronic kidney disease with heart failure and with stage 5 chronic kidney disease, or end stage renal disease; L02.211 Cutaneous abscess of abdominal wall; Z68.42 Body mass index [BMI] 45.0-49.9, adult; M06.9 Rheumatoid arthritis, unspecified; J44.9 Chronic obstructive pulmonary disease, unspecified; E11.22 Type 2 diabetes mellitus with diabetic chronic kidney disease; I73.00 Raynaud's syndrome without gangrene; E87.5 Hyperkalemia; F17.210 Nicotine dependence, cigarettes, uncomplicated; E66.01 Morbid (severe) obesity due to excess calories; D70.9 Neutropenia, unspecified; E11.40 Type 2 diabetes mellitus with diabetic neuropathy, unspecified; E83.39 Other disorders of phosphorus metabolism; I25.10 Atherosclerotic heart disease of native coronary artery without angina pectoris; Z99.2 Dependence on renal dialysis; Z99.3 Dependence on wheelchair; Z99.81 Dependence on supplemental oxygen; Z98.61 Coronary angioplasty status; Z79.02 Long term (current) use of antithrombotics/antiplatelets; Z96.652 Presence of left artificial knee joint; Z79.4 Long term (current) use of insulin; Z79.631 Long term (current) use of antimetabolite agent; Z88.8 Allergy status to other drugs, medicaments and biological substances; Z79.899 Other long term (current) drug therapy
CPT/HCPCS: 36415; 72193; 76882; 80053; 80074; 80202; 82306; 83036; 83605; 83615; 83690; 83735; 83880; 83970; 84100; 84145; 84484; 85025; 85610; 85730; 86706; 87040; 87070; 87077; 87081; 87186; 87205; 93005; 96365; 96367; 96375; 97162; 99285; A4649; J0131; J1643; J1815; J2270; J2405; J2543; J3370; J3371; J3490; J7040; J7050; Q5105; Q9967; S0077; A9270; J0736

== ENCOUNTER → 2024-12-12 | Outpatient (CLI) | payer OTHER, SELFPAY | END | disposition home or self-care (01) | PROVIDERS: PCP Internal Medicine; Referring Provider Internal Medicine; Visit Provider Student in an Organized Health Care Education/Training Program | DX: S31.40XA Unspecified open wound of vagina and vulva, initial encounter (principal); X58.XXXA Exposure to other specified factors, initial encounter; L02.818 Cutaneous abscess of other sites; F17.200 Nicotine dependence, unspecified, uncomplicated; D64.9 Anemia, unspecified; I10 Essential (primary) hypertension; J44.9 Chronic obstructive pulmonary disease, unspecified | CPT/HCPCS: 17250; 99213; A9270; G0463 ==

== ENCOUNTER → 2024-12-19 | Outpatient (CLI) | payer OTHER, SELFPAY | END | disposition home or self-care (01) | LOC: SWHD 13:09 | PROVIDERS: PCP Internal Medicine; Referring Provider Internal Medicine; Visit Provider Student in an Organized Health Care Education/Training Program | DX: S31.40XA Unspecified open wound of vagina and vulva, initial encounter (principal); X58.XXXA Exposure to other specified factors, initial encounter; L02.818 Cutaneous abscess of other sites; F17.200 Nicotine dependence, unspecified, uncomplicated; D64.9 Anemia, unspecified; I10 Essential (primary) hypertension; J44.9 Chronic obstructive pulmonary disease, unspecified | CPT/HCPCS: 99213; A9270; G0463 ==

== ENCOUNTER → 2025-01-23 | Outpatient (CLI) | payer OTHER, SELFPAY | END | disposition home or self-care (01) | LOC: SWHD 13:38 | PROVIDERS: PCP Internal Medicine; Referring Provider Internal Medicine; Visit Provider Student in an Organized Health Care Education/Training Program | DX: S31.40XA Unspecified open wound of vagina and vulva, initial encounter (principal); X58.XXXA Exposure to other specified factors, initial encounter; L02.818 Cutaneous abscess of other sites; F17.200 Nicotine dependence, unspecified, uncomplicated; D64.9 Anemia, unspecified; I10 Essential (primary) hypertension; J44.9 Chronic obstructive pulmonary disease, unspecified | CPT/HCPCS: 99213; A9270; G0463 ==